=== PATIENT | female | born 1950 | race Caucasian/White ===

== ENCOUNTER → 2019-04-11 10:50 | Outpatient (BNVA) | payer MEDICARE, OTHER, SELFPAY | PROVIDERS: Family Provider Nurse Practitioner Family; PCP Nurse Practitioner Family; Visit Provider Internal Medicine Rheumatology | DX: M32.9 Systemic lupus erythematosus, unspecified (principal); Z79.899 Other long term (current) drug therapy; R76.8 Other specified abnormal immunological findings in serum; M19.071 Primary osteoarthritis, right ankle and foot; M19.072 Primary osteoarthritis, left ankle and foot; Z11.59 Encounter for screening for other viral diseases | CPT/HCPCS: 36415; 80076; 81001; 82565; 82570; 84156; 85025; 85651; 86140; 86160; 99214 ==

== ENCOUNTER → 2019-04-11 12:00 | Outpatient (BNVA) | payer MEDICARE, OTHER, SELFPAY | PROVIDERS: Family Provider Nurse Practitioner Family; PCP Nurse Practitioner Family; Visit Provider Internal Medicine Rheumatology | DX: M32.9 Systemic lupus erythematosus, unspecified (principal); Z79.899 Other long term (current) drug therapy | CPT/HCPCS: 81001; 82570; 84156; 85025; 86160 ==

== ENCOUNTER → 2019-10-01 10:08 | Outpatient (BNVA) | payer MEDICARE, OTHER, SELFPAY | PROVIDERS: Family Provider Nurse Practitioner Family; PCP Nurse Practitioner Family; Visit Provider Internal Medicine Rheumatology | DX: M32.9 Systemic lupus erythematosus, unspecified (principal); M05.9 Rheumatoid arthritis with rheumatoid factor, unspecified; R76.8 Other specified abnormal immunological findings in serum; M19.071 Primary osteoarthritis, right ankle and foot; M19.072 Primary osteoarthritis, left ankle and foot; M10.9 Gout, unspecified | CPT/HCPCS: 88305; 88312; 99214 ==

== ENCOUNTER → 2019-11-11 13:12 | Outpatient (BNVA) | payer MEDICARE, OTHER, SELFPAY | PROVIDERS: Family Provider Nurse Practitioner Family; PCP Nurse Practitioner Family; Referring Provider Dermatology; Visit Provider Dermatology | DX: L29.9 Pruritus, unspecified (principal); L85.3 Xerosis cutis; D69.2 Other nonthrombocytopenic purpura; M32.9 Systemic lupus erythematosus, unspecified; M05.79 Rheumatoid arthritis with rheumatoid factor of multiple sites without organ or systems involvement | CPT/HCPCS: 99203; 99204 ==

== ENCOUNTER 2019-12-10 12:01 | Outpatient (CLI) | payer MEDICARE, OTHER, SELFPAY ==
--- NOTE | 2019-12-10 12:08 | MM_ITS ---
WS: [id number] BILATERAL DIGITAL SCREENING MAMMOGRAM WITH CAD CLINICAL INFORMATION: SCREENING HISTORY: Screening mammogram. No current complaints. COMPARISON: TECHNIQUE: Bilateral CC and MLO. FINDINGS: The breast are composed of extremely dense tissue, which can limit the detection of small underlying mass lesions. Increasing 10 mm asymmetric density upper outer left breast. Recommend spot compression views and ultrasound. Stable dystrophic calcification right breast MM/[place] [id number] IMPRESSION: BI-RADS: 0-Incomplete: Need additional imaging evaluation FOLLOW UP: Need Additional Imaging RECOMMEND LEFT BREAST SPOT COMPRESSION VIEWS AND ULTRASOUND
== END 2019-12-10 12:02 | disposition home or self-care (01) ==
PROVIDERS: PCP Nurse Practitioner Family; Visit Provider Nurse Practitioner Family
DX: Z12.31 Encounter for screening mammogram for malignant neoplasm of breast (principal); R92.1 Mammographic calcification found on diagnostic imaging of breast; N64.89 Other specified disorders of breast
CPT/HCPCS: 77067

== ENCOUNTER 2019-12-16 11:53 | Outpatient (CLI) | payer MEDICARE, OTHER, SELFPAY ==
--- NOTE | 2019-12-16 12:01 | US_ITS ---
WS: [id number] LEFT DIGITAL MAMMOGRAPHY WITH CAD CLINICAL INFORMATION: LT BREAST DENSITY COMPARISON: December 10, 2019 TECHNIQUE: 3 views of the left breast were obtained. FINDINGS: The left breast is composed of heterogeneous fibroglandular density tissue, which can limit the detec tion of small underlying mass lesions. Stable 10 mm asymmetric density upper outer left breast. Ultrasound is pending. ULTRASOUND BREAST LEFT TECHNIQUE: Ultrasound left breast focused area of concern. CLINICAL INFORMATION: LT BREAST DENSITY COMPARISON: None. FINDINGS: Ultrasound left breast at the 9:00 position. Dense underlying parenchymal tissue. No evidence of cyst ic or solid lesions. No pathologic lesions to target for biopsy. Findings are benign. US/US breast LT limited* [id number] IMPRESSION: BI-RADS: 2-Benign FOLLOW UP: 1 Year Follow-up Recommend return to annual screening mammography.
== END 2019-12-16 11:54 | disposition home or self-care (01) ==
LOC: RADSHAW 11:59
PROVIDERS: PCP Nurse Practitioner Family; Visit Provider Nurse Practitioner Family
DX: N64.89 Other specified disorders of breast (principal)
CPT/HCPCS: 76642; 77065

== ENCOUNTER → 2020-01-06 11:08 | Outpatient (BNVA) | payer MEDICARE, OTHER, SELFPAY | PROVIDERS: PCP Nurse Practitioner Family; Visit Provider Internal Medicine Rheumatology | DX: M32.9 Systemic lupus erythematosus, unspecified (principal); M05.79 Rheumatoid arthritis with rheumatoid factor of multiple sites without organ or systems involvement; M10.9 Gout, unspecified; Z79.899 Other long term (current) drug therapy; Z79.52 Long term (current) use of systemic steroids; R76.8 Other specified abnormal immunological findings in serum; M17.0 Bilateral primary osteoarthritis of knee; M19.071 Primary osteoarthritis, right ankle and foot; M19.072 Primary osteoarthritis, left ankle and foot | CPT/HCPCS: 36415; 80076; 82565; 84550; 85025; 85651; 99214 ==

== ENCOUNTER 2020-01-06 12:22 | Outpatient (CLI) | payer MEDICARE, OTHER, SELFPAY ==
[2020-01-06 12:55] LABS: Basophils # 0.1 10^3/uL (0.0-0.1); Basophils % 1.7 %; Eosinophils # 0.2 10^3/uL (0.0-0.8); Eosinophils % 3.2 %; Hematocrit 40.7 % (37.0-47.0); Lymphocytes # 1.2 10^3/uL (0.8-4.8); Lymphocytes % 22.5 %; Mean Corpuscular HGB Conc 31.9 g/dL (30.0-36.0); Mean Corpuscular Hemoglobin 27.5 pg (28.0-34.0); Mean Platelet Volume 10.7 fL (7.4-10.4); Monocytes # 0.6 10^3/uL (0.2-0.9); Monocytes % 11.3 %; Neutrophils # 3.24 10^3/uL (1.8-7.7); Neutrophils % 61.3 %; Nucleated Red Blood Cells % 0 %; Platelet Count 214 10^3/cmm (130-400); Red Blood Count 4.73 10^6/uL (4.1-5.3); Red Cell Distribution Width 13.5 % (12.1-15.1); White Blood Count 5.3 10^3/uL (4.0-10.0)
[2020-01-06 13:13] LABS: Alanine Aminotransferase 17 U/L (0-33); Albumin Level 4.4 g/dL (3.5-5.2); Alkaline Phosphatase 77 IU/L (35-105); Aspartate Amino Transferase 24 U/L (0-32); Glomerular Filtration Rate 82.7 mL/min (90-130); Total Bilirubin 0.2 mg/dL (0.15-1.2); Total Protein 7.4 g/dL (6.6-8.7); Uric Acid 5.8 mg/dL (2.4-5.7)
[2020-01-06 13:38] LABS: Erythrocyte Sedimentation Rate 21 mm/hr (0-15)
== END 2020-01-06 12:23 | disposition home or self-care (01) ==
LOC: LAB 12:30
PROVIDERS: PCP Nurse Practitioner Family; Visit Provider Internal Medicine Rheumatology
DX: Z79.899 Other long term (current) drug therapy (principal)
CPT/HCPCS: 36415; 80076; 82565; 84550; 85025; 85651

== ENCOUNTER → 2020-03-08 13:32 | Outpatient (BNVA) | payer MEDICARE, OTHER, SELFPAY | PROVIDERS: PCP Nurse Practitioner Family; Visit Provider Nurse Practitioner | DX: M79.671 Pain in right foot (principal) | CPT/HCPCS: 84550; 84560 ==

== ENCOUNTER 2020-05-01 13:29 | Outpatient (CLI) | payer MEDICARE, OTHER, SELFPAY ==
[2020-05-01 13:57] LABS: Basophils # 0.1 10^3/uL (0.0-0.1); Basophils % 2.1 %; Eosinophils # 0.1 10^3/uL (0.0-0.8); Eosinophils % 1.7 %; Hematocrit 35.8 % (37.0-47.0); Hemoglobin 11.1 g/dL (11.5-15.3); Lymphocytes # 1.4 10^3/uL (0.8-4.8); Lymphocytes % 26.9 %; Mean Corpuscular Hemoglobin 26.2 pg (28.0-34.0); Mean Corpuscular Volume 84.6 fL (81-99); Mean Platelet Volume 10.4 fL (7.4-10.4); Monocytes # 0.6 10^3/uL (0.2-0.9); Monocytes % 11.5 %; Neutrophils # 3.05 10^3/uL (1.8-7.7); Neutrophils % 57.2 %; Nucleated Red Blood Cells % 0 %; Platelet Count 269 10^3/cmm (130-400); Red Blood Count 4.23 10^6/uL (4.1-5.3); Red Cell Distribution Width 16.2 % (12.1-15.1); White Blood Count 5.3 10^3/uL (4.0-10.0)
[2020-05-01 14:19] LABS: Alanine Aminotransferase 20 U/L (0-33); Albumin Level 4.2 g/dL (3.5-5.2); Alkaline Phosphatase 102 IU/L (35-105); Aspartate Amino Transferase 24 U/L (0-32); C Reactive Protein 0.8 mg/L (0.0-4.9); Glomerular Filtration Rate 82.7 mL/min (90-130); Total Bilirubin 0.3 mg/dL (0.15-1.2); Total Protein 7.2 g/dL (6.6-8.7)
== END 2020-05-01 13:30 | disposition home or self-care (01) ==
PROVIDERS: PCP Nurse Practitioner Family; Visit Provider Internal Medicine Rheumatology
DX: M05.79 Rheumatoid arthritis with rheumatoid factor of multiple sites without organ or systems involvement (principal); Z79.899 Other long term (current) drug therapy
CPT/HCPCS: 36415; 80076; 82565; 85025; 86140

== ENCOUNTER → 2020-05-12 15:12 | Outpatient (BNVA) | payer MEDICARE, OTHER, SELFPAY | PROVIDERS: PCP Nurse Practitioner Family; Visit Provider Internal Medicine Rheumatology | DX: M32.9 Systemic lupus erythematosus, unspecified (principal); M05.79 Rheumatoid arthritis with rheumatoid factor of multiple sites without organ or systems involvement; R76.8 Other specified abnormal immunological findings in serum; Z79.899 Other long term (current) drug therapy; Z86.16 Personal history of COVID-19; Z87.891 Personal history of nicotine dependence | CPT/HCPCS: 99214 ==

== ENCOUNTER 2020-05-21 15:35 | Outpatient (CLI) | payer MEDICARE, OTHER, SELFPAY ==
--- NOTE | 2020-05-21 | XR_ITS ---
WS: [id number] Right ankle, 3 views, 05/21/2020 Clinical Data: BILAT FOOT AND ANKLE PAIN Comparison: None. Findings: No fractures or dislocations are seen. The ankle mortise is normal. The talus and calcaneus are unrem arkable. No soft tissue swelling over the medial or lateral malleolus is seen. XR/XR ankle RT min 3V* [id number] Impression: Negative right ankle.
--- NOTE | 2020-05-21 | XR_ITS ---
WS: [id number] Right foot, 3 views, 05/21/2020 Clinical Data: RT. FOOT PAIN Comparison: None. Findings: No fractures or dislocations are seen. No bone destruction or erosion is noted. There is a small buni on at the head of the right first metatarsal. XR/XR foot RT min 3V* [id number] Impression: Small bunion at the head of the right first metatarsal.
--- NOTE | 2020-05-21 | XR_ITS ---
WS: [id number] Left foot, 3 views, 05/21/2020 Clinical Data: LT FOOT PAIN Comparison: None. Findings: No fractures or dislocations are seen. No bone destruction or erosion is noted. Minimal osteoarthriti c narrowing of the first MP joint of the left foot is seen. 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
--- NOTE | 2020-05-21 | XR_ITS ---
WS: [id number] Left ankle, 3 views, 05/21/2020 Clinical Data: LT. ANKLE PAIN Comparison: None. Findings: No fractures or dislocations are seen. The ankle mortise is normal. The talus and calcaneus are unrem arkable. No soft tissue swelling over the medial or lateral malleolus is seen. XR/XR ankle LT min 3V* [id number] Impression: Negative left ankle.
== END 2020-05-21 15:36 | disposition home or self-care (01) ==
LOC: RAD 15:46
PROVIDERS: PCP Nurse Practitioner Family; Visit Provider Nurse Practitioner Family
DX: M25.572 Pain in left ankle and joints of left foot (principal); M25.571 Pain in right ankle and joints of right foot; M19.072 Primary osteoarthritis, left ankle and foot; M21.611 Bunion of right foot
CPT/HCPCS: 73610; 73630

== ENCOUNTER → 2020-06-01 13:37 | Outpatient (BNVA) | payer MEDICARE, OTHER, SELFPAY | PROVIDERS: PCP Nurse Practitioner Family; Visit Provider Nurse Practitioner | DX: R30.0 Dysuria (principal); N39.0 Urinary tract infection, site not specified | CPT/HCPCS: 81000; 87086 ==

== ENCOUNTER → 2020-09-01 13:36 | Outpatient (BNVA) | payer MEDICARE, OTHER, SELFPAY | PROVIDERS: PCP Nurse Practitioner Family; Visit Provider Internal Medicine Rheumatology | DX: M05.79 Rheumatoid arthritis with rheumatoid factor of multiple sites without organ or systems involvement (principal); M32.9 Systemic lupus erythematosus, unspecified; R76.8 Other specified abnormal immunological findings in serum; Z79.899 Other long term (current) drug therapy | CPT/HCPCS: 36415; 80076; 82565; 84550; 85025; 86140 ==

== ENCOUNTER → 2020-09-09 11:03 | Outpatient (BNVA) | payer MEDICARE, OTHER, SELFPAY | PROVIDERS: PCP Nurse Practitioner Family; Visit Provider Internal Medicine Rheumatology | DX: L93.1 Subacute cutaneous lupus erythematosus (principal); M05.9 Rheumatoid arthritis with rheumatoid factor, unspecified; R76.8 Other specified abnormal immunological findings in serum; Z79.899 Other long term (current) drug therapy; M17.0 Bilateral primary osteoarthritis of knee; M19.09 Primary osteoarthritis, other specified site; Z71.89 Other specified counseling; Z87.891 Personal history of nicotine dependence | CPT/HCPCS: 99214 ==

== ENCOUNTER → 2020-12-30 13:00 | Outpatient (BNVA) | payer MEDICARE, OTHER, SELFPAY | PROVIDERS: PCP Nurse Practitioner Family; Visit Provider Internal Medicine Rheumatology | DX: L93.1 Subacute cutaneous lupus erythematosus (principal); M05.79 Rheumatoid arthritis with rheumatoid factor of multiple sites without organ or systems involvement; Z79.899 Other long term (current) drug therapy; M17.0 Bilateral primary osteoarthritis of knee; M19.071 Primary osteoarthritis, right ankle and foot; M19.072 Primary osteoarthritis, left ankle and foot; R76.8 Other specified abnormal immunological findings in serum; Z71.89 Other specified counseling; Z87.891 Personal history of nicotine dependence | CPT/HCPCS: 99214 ==

== ENCOUNTER 2021-03-18 11:34 | Outpatient (CLI) | payer MEDICARE, OTHER, SELFPAY ==
--- NOTE | 2021-03-18 11:43 | MM_ITS ---
WS: [id number] BILATERAL DIGITAL SCREENING MAMMOGRAPHY WITH CAD CLINICAL INFORMATION: SCREENING HISTORY: Screening mammogram. No current complaints. COMPARISON: December 16, 2019 TECHNIQUE: Bilateral CC and MLO views. FINDINGS: The breasts are composed of heterogeneous fibroglandular density tissue, which can limit the detectio n of small underlying mass lesions. Vascular calcification. Stable dystrophic calcification upper out er right breast. No suspicious mass, asymmetry, calcifications, or architectural distortion. No evide nce of malignancy. MM/[place] [id number] IMPRESSION: BI-RADS: 2-Benign FOLLOW UP: 1 Year Follow-up Recommend return to annual screening mammography.
== END 2021-03-18 11:35 | disposition home or self-care (01) ==
PROVIDERS: PCP Nurse Practitioner Family; Visit Provider Nurse Practitioner Family
DX: Z12.31 Encounter for screening mammogram for malignant neoplasm of breast (principal)
CPT/HCPCS: 77067

== ENCOUNTER 2021-04-21 16:38 | Outpatient (CLI) | payer MEDICARE, OTHER, SELFPAY ==
[2021-04-21 17:22] LABS: Basophils # 0.1 10^3/uL (0.0-0.1); Basophils % 1.4 %; Eosinophils # 0.1 10^3/uL (0.0-0.8); Eosinophils % 2.5 %; Hematocrit 38.7 % (37.0-47.0); Hemoglobin 12.3 g/dL (11.5-15.3); Lymphocytes # 1.3 10^3/uL (0.8-4.8); Mean Corpuscular HGB Conc 31.8 g/dL (30.0-36.0); Mean Corpuscular Hemoglobin 27.3 pg (28.0-34.0); Mean Corpuscular Volume 85.8 fl (81-99); Mean Platelet Volume 10.6 fL (7.4-10.4); Monocytes # 0.7 10^3/uL (0.2-0.9); Monocytes % 16.1 %; Neutrophils # 2.16 10^3/uL (1.8-7.7); Neutrophils % 49.5 %; Nucleated Red Blood Cells % 0 %; Platelet Count 247 10^3/cmm (130-400); Red Blood Count 4.51 10^6/uL (4.1-5.3); Red Cell Distribution Width 14.9 % (12.1-15.1); White Blood Count 4.4 10^3/uL (4.0-10.0)
[2021-04-21 17:41] LABS: Bilirubin Urine Neg (Negative); Blood Urine Neg (Negative); Glucose Urine UA Norm (Normal); Ketones Urine Negative (Negative); Leukocyte Esterase Urine Trace (Negative); Nitrate Urine Negative (Negative); Protein Urine Neg (Negative); Urine Appearance SL Hazy (CLEAR); Urine Color Yellow (Yellow); Urobilinogen Urine Norm (Negative); pH Urine 5 (5-7)
[2021-04-21 17:50] LABS: Add Urine Culture? No; Bacteria Urine 1+ /hpf; Squamous Epithelial Cell Urine 40-55 /hpf (0-5); WBC Urine RARE /hpf (0-5)
[2021-04-21 18:00] LABS: Alanine Aminotransferase 17 U/L (0-33); Albumin Level 4.3 g/dL (3.5-5.2); Alkaline Phosphatase 68 IU/L (35-105); Aspartate Amino Transferase 21 U/L (0-32); C Reactive Protein 3.5 mg/L (0.0-4.9); Globulin 3.1 g/dL (1.3-4.6); Total Bilirubin 0.3 mg/dL (0.15-1.2); Total Protein 7.4 g/dL (6.6-8.7)
[2021-04-21 19:23] LABS: Urine Creatinine 148 mg/dL (28-217); Urine Protein Random 10 mg/dL
== END 2021-04-21 16:39 | disposition home or self-care (01) ==
LOC: LAB 16:42
PROVIDERS: PCP Nurse Practitioner Family; Visit Provider Internal Medicine Rheumatology
DX: L93.1 Subacute cutaneous lupus erythematosus (principal); Z79.899 Other long term (current) drug therapy
CPT/HCPCS: 36415; 80076; 81001; 82565; 82570; 84156; 85025; 86140

== ENCOUNTER → 2021-04-27 14:58 | Outpatient (BNVA) | payer MEDICARE, OTHER, SELFPAY | PROVIDERS: PCP Nurse Practitioner Family; Visit Provider Internal Medicine Rheumatology | DX: M32.9 Systemic lupus erythematosus, unspecified (principal); R76.8 Other specified abnormal immunological findings in serum; M17.0 Bilateral primary osteoarthritis of knee; M19.071 Primary osteoarthritis, right ankle and foot; M19.072 Primary osteoarthritis, left ankle and foot; R21 Rash and other nonspecific skin eruption; Z79.899 Other long term (current) drug therapy; Z71.89 Other specified counseling | CPT/HCPCS: 99214 ==

== ENCOUNTER → 2021-09-02 10:52 | Outpatient (BNVA) | payer MEDICARE, OTHER, SELFPAY | PROVIDERS: PCP Nurse Practitioner Family; Visit Provider Internal Medicine Rheumatology | DX: M32.9 Systemic lupus erythematosus, unspecified (principal); M05.79 Rheumatoid arthritis with rheumatoid factor of multiple sites without organ or systems involvement; Z79.899 Other long term (current) drug therapy; L30.9 Dermatitis, unspecified; M17.0 Bilateral primary osteoarthritis of knee; M19.071 Primary osteoarthritis, right ankle and foot; M19.072 Primary osteoarthritis, left ankle and foot; Z71.89 Other specified counseling | CPT/HCPCS: 36415; 80076; 81001; 82565; 82570; 84156; 85025; 86140; 99214 ==

== ENCOUNTER → 2021-09-03 17:05 | Outpatient (BNVA) | payer MEDICARE, OTHER, SELFPAY | PROVIDERS: PCP Nurse Practitioner Family; Visit Provider Family Medicine Adult Medicine | DX: R39.9 Unspecified symptoms and signs involving the genitourinary system (principal); N39.0 Urinary tract infection, site not specified | CPT/HCPCS: 81000 ==

== ENCOUNTER 2022-02-23 16:32 | Outpatient (CLI) | payer MEDICARE, OTHER, SELFPAY ==
[2022-02-23 18:04] LABS: Basophils # 0.1 10^3/uL (0.0-0.1); Basophils % 1.6 %; Eosinophils % 0.7 %; Hematocrit 40.8 % (37.0-47.0); Hemoglobin 12.7 g/dL (11.5-15.3); Lymphocytes # 2.1 10^3/uL (0.8-4.8); Lymphocytes % 35.8 %; Mean Corpuscular HGB Conc 31.1 g/dL (30.0-36.0); Mean Corpuscular Hemoglobin 26.4 pg (28.0-34.0); Mean Corpuscular Volume 84.8 fl (81-99); Mean Platelet Volume 11.6 fL (7.4-10.4); Monocytes # 0.9 10^3/uL (0.2-0.9); Monocytes % 15.3 %; Neutrophils # 2.67 10^3/uL (1.8-7.7); Neutrophils % 46.3 %; Nucleated Red Blood Cells % 0 %; Platelet Count 267 10^3/cmm (130-400); Red Blood Count 4.81 10^6/uL (4.1-5.3); Red Cell Distribution Width 14.5 % (12.1-15.1); White Blood Count 5.8 10^3/uL (4.0-10.0)
[2022-02-23 18:30] LABS: Alanine Aminotransferase 9 U/L (0-33); Albumin Level 4.3 g/dL (3.5-5.2); Alkaline Phosphatase 59 U/L (35-105); Aspartate Amino Transferase 17 U/L (0-32); Globulin 3.1 g/dL (1.3-4.6); Total Bilirubin 0.3 mg/dL (0.15-1.2); Total Protein 7.4 g/dL (6.6-8.7)
== END 2022-02-23 16:33 | disposition home or self-care (01) ==
LOC: LAB 16:39
PROVIDERS: PCP Nurse Practitioner Family; Visit Provider Internal Medicine Rheumatology
DX: Z79.899 Other long term (current) drug therapy (principal); L93.1 Subacute cutaneous lupus erythematosus
CPT/HCPCS: 80076; 82565; 85025; 86140

== ENCOUNTER → 2022-02-24 09:36 | Outpatient (BNVA) | payer MEDICARE, OTHER, SELFPAY | PROVIDERS: PCP Nurse Practitioner Family; Visit Provider Internal Medicine Rheumatology | DX: M05.79 Rheumatoid arthritis with rheumatoid factor of multiple sites without organ or systems involvement (principal); L30.9 Dermatitis, unspecified; Z79.899 Other long term (current) drug therapy; Z71.89 Other specified counseling; R76.8 Other specified abnormal immunological findings in serum; M17.0 Bilateral primary osteoarthritis of knee; M19.071 Primary osteoarthritis, right ankle and foot; M19.072 Primary osteoarthritis, left ankle and foot | CPT/HCPCS: 99214 ==

== ENCOUNTER 2022-03-28 11:39 | Outpatient (CLI) | payer MEDICARE, OTHER, SELFPAY ==
--- NOTE | 2022-03-28 11:44 | MM_ITS ---
WS: [id number] BILATERAL SCREENING DIGITAL TOMOSYNTHESIS MAMMOGRAM WITH CAD HISTORY: SCREENING COMPARISON: 03/18/2021, 12/16/2019 and 12/10/2019 Bilateral CC and MLO views with tomosynthesis and synthetic mammography submitted. Computer aided det ection analyzed. Breast composition: The breasts are heterogeneously dense, which may obscure small masses. Asymmetry in the upper outer quadrant of the LEFT breast. May be superimposed fibroglandular tissues. Benign calcifications RIGHT breast. MM/[place] [id number] IMPRESSION: BI-RADS: 0-Incomplete: Need additional imaging evaluation FOLLOW UP: Need Additional Imaging LEFT breast: Spot compression views (CC and MLO). True ML. Ultrasound to follow if abnormality persists.
== END 2022-03-28 11:40 | disposition home or self-care (01) ==
PROVIDERS: PCP Nurse Practitioner Family; Visit Provider Nurse Practitioner Family
DX: Z12.31 Encounter for screening mammogram for malignant neoplasm of breast (principal)
CPT/HCPCS: 77063; 77067

== ENCOUNTER 2022-04-21 09:01 | Outpatient (CLI) | payer MEDICARE, OTHER, SELFPAY ==
--- NOTE | 2022-04-21 09:09 | MM_ITS ---
WS: [id number] ADDITIONAL VIEWS LEFT MAMMOGRAM with tomosynthesis. LEFT BREAST ULTRASOUND HISTORY: ABNORMAL MAMMO COMPARISON: 03/28/2022, 03/18/2021 LEFT MAMMOGRAM: Spot compression views and true ML with tomosynthesis and sympathetic mammography. The asymmetry noted best on the LEFT MLO projection in the upper outer quadrant significantly changes configuration with spot compression views. I suspect this is probably normal fibroglandular tissue. Ultrasound will be performed also. LEFT BREAST ULTRASOUND 2-D and color Doppler imaging submitted. Ultrasound directed to the upper outer quadrant of the LEFT breast from 12-3 o'clock. There is no mas s or shadowing. No cystic or solid mass. MM/[place] [id number] IMPRESSION: BI-RADS: 2-Benign FOLLOW UP: 1 Year Follow-up No persistent abnormality upper-outer quadrant LEFT breast.
== END 2022-04-21 09:02 | disposition home or self-care (01) ==
LOC: RAD 09:06
PROVIDERS: PCP Nurse Practitioner Family; Visit Provider Nurse Practitioner Family
DX: R92.8 Other abnormal and inconclusive findings on diagnostic imaging of breast (principal)
CPT/HCPCS: 76642; 77061; G0279

== ENCOUNTER 2022-07-29 15:30 | Outpatient (CLI) | payer MEDICARE, OTHER, SELFPAY ==
[2022-07-29 16:12] LABS: Basophils # 0.1 10^3/uL (0.0-0.1); Basophils % 2.8 %; Eosinophils # 0.2 10^3/uL (0.0-0.8); Eosinophils % 4.8 %; Hematocrit 37.3 % (37.0-47.0); Hemoglobin 11.5 g/dL (11.5-15.3); Lymphocytes # 1.3 10^3/uL (0.8-4.8); Lymphocytes % 29.3 %; Mean Corpuscular HGB Conc 30.8 g/dL (30.0-36.0); Mean Corpuscular Hemoglobin 25.9 pg (28.0-34.0); Mean Platelet Volume 10.2 fL (7.4-10.4); Monocytes # 0.7 10^3/uL (0.2-0.9); Monocytes % 15.9 %; Neutrophils # 2.04 10^3/uL (1.8-7.7); Neutrophils % 47.2 %; Nucleated Red Blood Cells % 0 %; Platelet Count 280 10^3/cmm (130-400); Red Blood Count 4.44 10^6/uL (4.1-5.3); Red Cell Distribution Width 14.4 % (12.1-15.1); White Blood Count 4.3 10^3/uL (4.0-10.0)
[2022-07-29 16:26] LABS: Alanine Aminotransferase 16 U/L (0-33); Albumin Level 4.1 g/dL (3.5-5.2); Alkaline Phosphatase 61 U/L (35-105); Aspartate Amino Transferase 24 U/L (0-32); C Reactive Protein 6.9 mg/L (0.0-4.9); Globulin 2.8 g/dL (1.3-4.6); Total Bilirubin 0.3 mg/dL (0.15-1.2); Total Protein 6.9 g/dL (6.6-8.7)
== END 2022-07-29 15:31 | disposition home or self-care (01) ==
LOC: LAB 15:37
PROVIDERS: PCP Nurse Practitioner Family; Visit Provider Internal Medicine Rheumatology
DX: M32.9 Systemic lupus erythematosus, unspecified (principal); Z79.899 Other long term (current) drug therapy
CPT/HCPCS: 36415; 80076; 82565; 85025; 86140

== ENCOUNTER → 2022-08-01 13:20 | Outpatient (BNVA) | payer MEDICARE, OTHER, SELFPAY | PROVIDERS: PCP Nurse Practitioner Family; Visit Provider Internal Medicine Rheumatology | DX: M05.79 Rheumatoid arthritis with rheumatoid factor of multiple sites without organ or systems involvement (principal); Z79.899 Other long term (current) drug therapy; L30.9 Dermatitis, unspecified; Z71.89 Other specified counseling; R76.8 Other specified abnormal immunological findings in serum | CPT/HCPCS: 99214 ==

== ENCOUNTER → 2022-09-22 09:04 | Outpatient (BNVA) | payer MEDICARE, OTHER, SELFPAY | PROVIDERS: PCP Nurse Practitioner Family; Referring Provider Nurse Practitioner Family; Visit Provider Specialist | DX: G50.0 Trigeminal neuralgia; M32.9 Systemic lupus erythematosus, unspecified | CPT/HCPCS: 99204 ==

== ENCOUNTER 2022-10-20 11:03 | Outpatient (CLI) | payer MEDICARE, OTHER, SELFPAY ==
--- NOTE | 2022-10-20 11:00 | MR_ITS ---
WS: [id number] MRA HEAD TECHNIQUE: Axial 3-D TOF images obtained with axial images and axial, sagittal, and coronal 2-D refor matted images. CLINICAL INFORMATION: G50.0 - Trigeminal neuralgia COMPARISON: None. FINDINGS: Distal vertebral arteries are patent. Basilar artery is patent. Normal vascularity to the MANAGER MARKET territo ry bilaterally. Persistent RIGHT MANAGER MARKET. Both ICAs are patent at the skull base. Normal vascularity to the SARA and MCA territories bilaterally . No evidence of proximal flow-limiting stenosis or aneurysm. Superior cerebellar artery slightly contacting the RIGHT trigeminal nerve better seen on the MRI head images. IMPRESSION: 1. No evidence of proximal flow-limiting stenosis or aneurysm. 2. Persistent RIGHT MANAGER MARKET. 3. Suspected Superior cerebellar artery slightly impinging the RIGHT trigeminal nerve better seen on the MRI head images
--- NOTE | 2022-10-20 11:15 | MR_ITS ---
WS: [id number] MRI HEAD WITHOUT CONTRAST TECHNIQUE: Sagittal T1, T2 axial, T2 axial FLAIR, axial and coronal T1 images, axial susceptibility w eighted imaging, axial diffusion weighted images, and coronal T2 images were obtained. CLINICAL INFORMATION: G50.0 - Trigeminal neuralgia COMPARISON: None. FINDINGS: No evidence restricted diffusion to suggest acute ischemia. Ventricular system and basal cisterns are patent. Mild small vessel changes. Mild parenchymal volume loss. Tiny chronic lacunar infarct RIGHT posterior lateral cerebellum. Normal vascular flow voids at the skull base. No extra-axial fluid shravan ections. No evidence of mass or mass effect. Paranasal sinuses are well aerated. Mild mucosal thickening mastoid tips bilaterally. Normal posterior nasopharynx. Normal parapharyngeal fat. No hemosiderin on susceptibility-weighted images. Normal optic chiasm and pituitary infundibulu m. RIGHT superior cerebellar artery appears to slightly impinge the preganglionic segment RIGHT trigemin al nerve best seen on the coronal imaging. LEFT trigeminal nerve root appears normal. IMPRESSION: 1. No evidence of restricted diffusion to suggest acute ischemia. 2. Mild small vessel changes. Mild parenchymal volume loss. 3. Tiny chronic lacunar infarct RIGHT cerebellum. 4. Superior cerebellar artery appears to cross the preganglionic segment RIGHT trigeminal nerve seen on the coronal imaging with slight compression. This could be further evaluated with gadolinium with IAC protocol for better anatomic detail if indicated. Recommend correlation with RIGHT trigeminal ne uralgia. 5. LEFT trigeminal nerve root entry zone has a normal appearance. 6. No other acute findings.
== END 2022-10-20 11:04 | disposition home or self-care (01) ==
PROVIDERS: PCP Nurse Practitioner Family; Visit Provider Specialist
DX: G50.0 Trigeminal neuralgia (principal); Z86.73 Personal history of transient ischemic attack (TIA), and cerebral infarction without residual deficits; R93.0 Abnormal findings on diagnostic imaging of skull and head, not elsewhere classified
CPT/HCPCS: 70544; 70551

== ENCOUNTER → 2022-10-28 09:32 | Outpatient (BNVA) | payer MEDICARE, OTHER, SELFPAY | PROVIDERS: PCP Nurse Practitioner Family; Visit Provider Specialist | DX: R29.90 Unspecified symptoms and signs involving the nervous system (principal); G50.0 Trigeminal neuralgia; H92.01 Otalgia, right ear | CPT/HCPCS: 99214 ==

== ENCOUNTER → 2022-11-14 11:10 | Outpatient (BNVA) | payer MEDICARE, OTHER, SELFPAY | PROVIDERS: PCP Nurse Practitioner Family; Referring Provider Specialist; Visit Provider Otolaryngology | DX: H93.A1 Pulsatile tinnitus, right ear (principal) | CPT/HCPCS: 99203 ==

== ENCOUNTER 2022-11-14 12:33 | Outpatient (CLI) | payer MEDICARE, OTHER, SELFPAY ==
[2022-11-14 13:14] LABS: Basophils # 0.1 10^3/uL (0.0-0.1); Basophils % 2.4 %; Eosinophils # 0.1 10^3/uL (0.0-0.8); Eosinophils % 2.4 %; Hematocrit 33.7 % (36-47); Lymphocytes # 1.3 10^3/uL (0.8-4.8); Lymphocytes % 29.8 %; Mean Corpuscular HGB Conc 31.5 g/dL (30-55); Mean Corpuscular Hemoglobin 26.6 pg (27-33); Mean Corpuscular Volume 84.5 fl (85-98); Mean Platelet Volume 10.4 fL (7.4-10.4); Monocytes # 0.7 10^3/uL (0.2-0.9); Monocytes % 17.1 %; Neutrophils # 2.01 10^3/uL (1.8-7.7); Neutrophils % 47.8 %; Nucleated Red Blood Cells % 0 %; Platelet Count 382 10^3/cmm (157-399); Red Blood Count 3.99 10^6/uL (3.85-5.65); Red Cell Distribution Width 14.2 % (12.1-15.1)
[2022-11-14 13:42] LABS: Alanine Aminotransferase 17 U/L (0-33); Albumin Level 3.9 g/dL (3.5-5.2); Alkaline Phosphatase 87 U/L (35-105); Aspartate Amino Transferase 15 U/L (0-32); Free T4 Free Thyroxine 1.26 ng/dL (0.82-1.77); Globulin 2.6 g/dL (1.3-4.6); Thyroid Stimulating Hormone 0.63 uIU/mL (0.27-4.20); Total Bilirubin 0.2 mg/dL (0.15-1.2); Total Protein 6.5 g/dL (6.6-8.7)
== END 2022-11-14 12:34 | disposition home or self-care (01) ==
PROVIDERS: PCP Nurse Practitioner Family; Visit Provider Internal Medicine Rheumatology
DX: Z79.899 Other long term (current) drug therapy (principal); M32.9 Systemic lupus erythematosus, unspecified
CPT/HCPCS: 36415; 80076; 82565; 84439; 84443; 85025; 86140

== ENCOUNTER → 2022-11-16 11:17 | Outpatient (BNVA) | payer MEDICARE, OTHER, SELFPAY | PROVIDERS: PCP Nurse Practitioner Family; Visit Provider Internal Medicine Rheumatology | DX: Z79.899 Other long term (current) drug therapy (principal); M05.79 Rheumatoid arthritis with rheumatoid factor of multiple sites without organ or systems involvement; L30.9 Dermatitis, unspecified; Z71.89 Other specified counseling; R76.8 Other specified abnormal immunological findings in serum | CPT/HCPCS: 99214 ==

== ENCOUNTER → 2022-11-28 14:08 | Outpatient (BNVA) | payer MEDICARE, OTHER, SELFPAY | PROVIDERS: PCP Nurse Practitioner Family; Visit Provider Dermatology | DX: L65.0 Telogen effluvium (principal); L57.0 Actinic keratosis; L72.0 Epidermal cyst; M32.10 Systemic lupus erythematosus, organ or system involvement unspecified; L57.8 Other skin changes due to chronic exposure to nonionizing radiation | CPT/HCPCS: 99214 ==

== ENCOUNTER → 2022-12-28 14:46 | Outpatient (BNVA) | payer MEDICARE, OTHER, SELFPAY | PROVIDERS: PCP Nurse Practitioner Family; Visit Provider Specialist | DX: G50.0 Trigeminal neuralgia (principal); R23.4 Changes in skin texture | CPT/HCPCS: 99213 ==

== ENCOUNTER → 2023-03-15 10:42 | Outpatient (BNVA) | payer MEDICARE, OTHER, SELFPAY | PROVIDERS: PCP Nurse Practitioner Family; Visit Provider Internal Medicine Rheumatology | DX: Z79.899 Other long term (current) drug therapy (principal); M05.79 Rheumatoid arthritis with rheumatoid factor of multiple sites without organ or systems involvement; L30.9 Dermatitis, unspecified; Z71.89 Other specified counseling; R76.8 Other specified abnormal immunological findings in serum | CPT/HCPCS: 99214 ==

== ENCOUNTER → 2023-05-01 11:28 | Outpatient (BNVA) | payer MEDICARE, OTHER, SELFPAY | PROVIDERS: PCP Nurse Practitioner Family; Visit Provider Podiatrist Foot & Ankle Surgery | DX: M25.571 Pain in right ankle and joints of right foot (principal); M25.572 Pain in left ankle and joints of left foot; G89.29 Other chronic pain; Q82.8 Other specified congenital malformations of skin; G62.9 Polyneuropathy, unspecified | CPT/HCPCS: 73610; 99203 ==

== ENCOUNTER 2023-05-03 14:41 | Outpatient (CLI) | payer MEDICARE, OTHER, SELFPAY ==
--- NOTE | 2023-05-03 14:49 | XR_ITS ---
WS: [email or web address] SCREENING DEXA SCAN [employer] CLINICAL INFORMATION: [facility] STEROID USE COMPARISON: 2016 FINDINGS: The L1-L4 bone mineral density measures 1.303 g/cm2. This corresponds to a T score score of 1.0 and Z score of 3.1. Left femoral neck bone mineral density measures 1.022 g/cm2. This corresponds to a T score of 0.1 and Z score of 2.0. Right femoral neck bone mineral density measures 1.015 g/cm2. This corresponds to a T score 0.1of and Z score of 2.0. Mean femoral neck bone mineral density measures 1.019 g/cm2. This corresponds to a T score of 0.1 and Z score of 2.0. IMPRESSION: Normal bone mineralization. Patient's FRAX calculated 10 year probability for major osteoporotic fracture is 27.9% and osteoporot ic hip fracture is 6.2%. Bone mineral density in the lumbar spine increased 3.4% Bone mineral density in the femoral necks increased 1.1%
== END 2023-05-03 14:42 | disposition home or self-care (01) ==
LOC: RAD 14:41
PROVIDERS: PCP Family Medicine; Visit Provider Family Medicine
DX: Z13.820 Encounter for screening for osteoporosis (principal); Z79.52 Long term (current) use of systemic steroids
CPT/HCPCS: 77080

== ENCOUNTER 2023-05-04 10:11 | Outpatient (CLI) | payer MEDICARE, OTHER, SELFPAY ==
--- NOTE | 2023-05-04 10:16 | CTR_ITS ---
PROCEDURE INFORMATION: Exam: CT Chest Without Contrast; Diagnostic Exam date and time: 05/04/2023 10:38 AM Age: 72 years old Clinical indication: Cough and shortness of breath; Patient HX: Shortness of breath, ex smoker; Additional info: Dyspnea TECHNIQUE: Imaging protocol: Diagnostic computed tomography of the chest without contrast. Radiation optimization: All CT scans at this facility use at least one of these dose optimization techniques: automated exposure control; mA and/or kV adjustment per patient size (includes targeted exams where dose is matched to clinical indication); or iterative reconstruction. COMPARISON: No relevant prior studies available. RADIATION DOSE METRICS: Total DLP (mGy-cm): 202.08 FINDINGS: Lungs: No infiltrate or consolidation. No masses. No significant bulla or bleb formation on the lung windows. Likely hyperinflation. Pleural spaces: Unremarkable. No pneumothorax. No pleural effusion. Heart: Unremarkable. No cardiomegaly. No pericardial effusion. Mild coronary artery calcification. Lymph nodes: Unremarkable. No enlarged lymph nodes. Vasculature: Unremarkable. No aortic aneurysm. Small amount of calcification proximal thoracic aorta. Gallbladder and bile ducts: Images through the upper-most abdomen demonstrate partially visualized surgical clips within the visualized gallbladder fossa and suggestion of postsurgical change GE junction. Bones/joints: Mild spondylotic change thoracic spine. Soft tissues: Unremarkable. CT/CT chest wo con [id number] IMPRESSION: 1. Small amount of calcification proximal thoracic aorta and mild coronary artery calcification. Likely hyperinflation without bulla or bleb formation. 2. No acute findings in the chest.
== END 2023-05-04 10:12 | disposition home or self-care (01) ==
LOC: RAD 10:12
PROVIDERS: PCP Family Medicine; Visit Provider Family Medicine
DX: I25.10 Atherosclerotic heart disease of native coronary artery without angina pectoris (principal); I70.0 Atherosclerosis of aorta
CPT/HCPCS: 71250; 94010; 94726; 94729

== ENCOUNTER → 2023-06-12 13:28 | Outpatient (BNVA) | payer MEDICARE, OTHER, SELFPAY | PROVIDERS: PCP Family Medicine; Visit Provider Podiatrist Foot & Ankle Surgery | DX: M25.571 Pain in right ankle and joints of right foot (principal); M25.572 Pain in left ankle and joints of left foot; Q82.8 Other specified congenital malformations of skin; G62.9 Polyneuropathy, unspecified | CPT/HCPCS: 99213 ==

== ENCOUNTER → 2023-06-28 09:45 | Outpatient (BNVA) | payer MEDICARE, OTHER, SELFPAY | PROVIDERS: PCP Family Medicine; Visit Provider Specialist | DX: G50.0 Trigeminal neuralgia (principal); Z79.899 Other long term (current) drug therapy; R29.90 Unspecified symptoms and signs involving the nervous system | CPT/HCPCS: 36415; 80156; 80157; 85025; 99214 ==

== ENCOUNTER 2023-07-20 11:07 | Outpatient (CLI) | payer MEDICARE, OTHER, SELFPAY ==
--- NOTE | 2023-07-20 11:15 | MM_ITS ---
WS: [id number] BILATERAL SCREENING DIGITAL TOMOSYNTHESIS MAMMOGRAM WITH CAD HISTORY: SCREENING COMPARISON: 09/12/2018, 04/21/2022, 03/28/2022 Bilateral CC and MLO views with tomosynthesis and synthetic mammography submitted. Computer aided det ection analyzed. Breast composition: The breasts are heterogeneously dense, which may obscure small masses. No suspici ous masses, microcalcifications or architectural distortion. Benign calcification posterior lateral R IGHT breast. MM/[place] [id number] IMPRESSION: BI-RADS: 2-Benign FOLLOW UP: 1 Year Follow-up
== END 2023-07-20 11:08 | disposition home or self-care (01) ==
LOC: RAD 11:07
PROVIDERS: PCP Family Medicine; Visit Provider Family Medicine
DX: Z12.31 Encounter for screening mammogram for malignant neoplasm of breast (principal); R92.333 Mammographic heterogeneous density, bilateral breasts
CPT/HCPCS: 77063; 77067

== ENCOUNTER → 2023-12-27 14:30 | Outpatient (BNVA) | payer MEDICARE, OTHER, SELFPAY | PROVIDERS: PCP Family Medicine; Visit Provider Internal Medicine Rheumatology | DX: L93.1 Subacute cutaneous lupus erythematosus (principal); Z79.899 Other long term (current) drug therapy; M05.79 Rheumatoid arthritis with rheumatoid factor of multiple sites without organ or systems involvement; Z71.89 Other specified counseling; L30.9 Dermatitis, unspecified; R76.8 Other specified abnormal immunological findings in serum; M17.0 Bilateral primary osteoarthritis of knee | CPT/HCPCS: 36415; 80076; 82565; 85025; 85651; 86140; 99214 ==

== ENCOUNTER → 2024-01-23 11:30 | Outpatient (BNVA) | payer MEDICARE, OTHER, SELFPAY | PROVIDERS: PCP Family Medicine; Visit Provider Specialist | DX: G50.0 Trigeminal neuralgia (principal); Z79.899 Other long term (current) drug therapy; G31.84 Mild cognitive impairment of uncertain or unknown etiology; R29.90 Unspecified symptoms and signs involving the nervous system | CPT/HCPCS: 96116; 99214 ==

== ENCOUNTER 2024-01-24 15:30 | Outpatient (CLI) | payer MEDICARE, OTHER, SELFPAY ==
[2024-01-24 17:45] LABS: Vitamin B12 871 pg/mL (232-1245)
== END 2024-01-24 15:31 | disposition home or self-care (01) ==
LOC: LAB 15:33
PROVIDERS: PCP Family Medicine; Visit Provider Specialist
DX: G31.84 Mild cognitive impairment of uncertain or unknown etiology (principal); G50.0 Trigeminal neuralgia
CPT/HCPCS: 36415; 82542; 82607; 83520

== ENCOUNTER → 2024-04-18 11:40 | Outpatient (BNVA) | payer MEDICARE, OTHER, SELFPAY | PROVIDERS: PCP Family Medicine; Visit Provider Specialist | DX: G50.0 Trigeminal neuralgia (principal); Z79.899 Other long term (current) drug therapy; R29.90 Unspecified symptoms and signs involving the nervous system; G31.84 Mild cognitive impairment of uncertain or unknown etiology | CPT/HCPCS: 99214 ==

== ENCOUNTER → 2024-07-10 13:07 | Outpatient (BNVA) | payer MEDICARE, OTHER, SELFPAY | PROVIDERS: PCP Family Medicine; Visit Provider Internal Medicine Rheumatology | DX: M05.79 Rheumatoid arthritis with rheumatoid factor of multiple sites without organ or systems involvement (principal); L30.9 Dermatitis, unspecified; Z79.899 Other long term (current) drug therapy; Z71.89 Other specified counseling; R76.8 Other specified abnormal immunological findings in serum | CPT/HCPCS: 36415; 80076; 82565; 85025; 85651; 86140; 99214 ==

== ENCOUNTER 2024-07-22 16:41 | Outpatient (CLI) | payer MEDICARE, OTHER, SELFPAY ==
--- NOTE | 2024-07-22 16:54 | XR_ITS ---
WS: [id number] XR lumbar spine 2-3V* [id number] REASON FOR EXAM: SPINAL STENOSIS OF LUMBAR REGION FINDINGS: Moderate levoscoliosis. Posterior decompression with pedicle screws, interconnecting rods, and interbody fusion device L4-L5. The surgical appliances are intact and in proper position and alignment. Mild disc space narrowing with endplate sclerosis and osteophytosis L2-L3 and L3-L4. XR/XR lumbar spine 2-3V* [id number] IMPRESSION: Postoperative lumbar spine as above.
== END 2024-07-22 16:42 | disposition home or self-care (01) ==
PROVIDERS: PCP Family Medicine; Visit Provider Nurse Practitioner Family
DX: Z98.1 Arthrodesis status (principal); M48.061 Spinal stenosis, lumbar region without neurogenic claudication; M41.86 Other forms of scoliosis, lumbar region; M25.78 Osteophyte, vertebrae; R93.7 Abnormal findings on diagnostic imaging of other parts of musculoskeletal system
CPT/HCPCS: 72100

== ENCOUNTER 2024-08-29 10:54 | Outpatient (CLI) | payer MEDICARE, OTHER, SELFPAY ==
--- NOTE | 2024-08-29 11:01 | MM_ITS ---
WS: [id number] BILATERAL 3D TOMOSYNTHESIS DIGITAL SCREENING MAMMOGRAM WITH CAD CLINICAL INFORMATION: SCREENING HISTORY: Screening mammogram. No current complaints. COMPARISON: 2023 TECHNIQUE: Bilateral CC and MLO. FINDINGS: The breast are composed of extremely dense tissue, which can limit the detection of small underlying mass lesions. No suspicious focal mass, asymmetry, calcifications, or architectural distortion. No evidence of malignancy. Lucent centered calcification RIGHT breast. Vascular calcification. MM/MM [facility] tomosynthesis [id number] IMPRESSION: DENSITY: The breasts are heterogeneously dense, which may obscure small masses. BI-RADS: 2 - Benign FOLLOW UP: 1 Year Follow-up Recommend return to annual screening mammography.
== END 2024-08-29 10:55 | disposition home or self-care (01) ==
PROVIDERS: PCP Nurse Practitioner Family; Visit Provider Nurse Practitioner Family
DX: Z12.31 Encounter for screening mammogram for malignant neoplasm of breast (principal); R92.1 Mammographic calcification found on diagnostic imaging of breast; R92.343 Mammographic extreme density, bilateral breasts
CPT/HCPCS: 77063; 77067

== ENCOUNTER 2024-10-05 21:01 | Emergency (ER) | payer MEDICARE, OTHER, SELFPAY ==
--- OUTSIDE RECORDS SUMMARY | 2024-08-19 11:00 | XMS_ITS ---
Author Organization [facility] Address [address] [place] [address] Care Team Providers Care Company Pilot Name Role Phone South FERRARA, Jd Primary Care Provider Griffin sarah EchevarriaChani Unavailable [phone] Merino, Jaylin Unavailable [phone] REASON FOR VISIT standard follow up apt Encounters Encounter Location Date Provider Diagnosis [facility] [address] [place] [id number] 08/19/2024 Jaylin Merino Plan Of Treatment Next Appt Details Provider Name:Chani Garcia son, 01/21/2025 10:00:00 AM, [address] [place], [address], Progress Notes * Sharon PARSONS JDOB:1950 ( 74 yo F)Acc No.[id number]:08/19/2024 Progress Notes Patient: Sophia BHAGATSharon Gonzales Provider: Janet Merino SPECIAL WEAPONS AND TACTICS OFFICER :1950 A ge:74 Y S ex:Female Date:08/19/2024 Address: [address] [place] [id number] Pcp:Jd Dia MD Subjective: * Chief Complaints: * S tandard follow up apt Billing Information: * Procedure Codes: Care Plan Details* * Electronic signature of Brooklyn Merino MH TEACHER on 10/05/2024 at 09:09 PM CDT Sign off status: Pending * Provider: Janet Merino SPECIAL WEAPONS AND TACTICS OFFICER Date: 0 08/19/2024 Generated for Brenna cai/Wilber/Nathenitting on: 0 10/05/2024 09:09 PM CDT
--- OUTSIDE RECORDS SUMMARY | 2024-10-05 21:08 | XMS_ITS | Encounter Summary ---
Author Organization [facility] Address [address] [place] [address] Care Team Providers Care Forest Nursery Supervisor Name Role Phone Jaylin Merino APN Primary Care Provider [phone] Encounter Details Date Type Department Care Team (Latest Contact Info) Description 06/05/2000 Outpatient Historical [facility] Delmar Henriquez NO ADDRESS ON FILE Hx-genital/obstetric disease (Primary Dx); Urinary sys symptom NEC Social History Tobacco Use Types Packs/Day Years Used Date Smoking Tobacco: Never Assessed Comments Unknown Sex and Gender Information Value Date Recorded Sex Assigned at Not on file 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 [address] PCP - General Nurse Practitioner Family 05/15/20 documented as of this encounter
--- OUTSIDE RECORDS SUMMARY | 2024-10-05 21:08 | XMS_ITS | Encounter Summary ---
Author Organization [facility] Address [address] [place] [address] Care Team Providers Care Upholstery Sewer Name Role Phone Jaylin Merino APN Primary Care Provider Encounter Details Date Type Department Care Team (Latest Contact Info) Description 09/25/2000 Outpatient Historical [facility] Delmar Henriquez NO ADDRESS ON FILE Vaginitis and vulvovaginitis, unspecified (Primary Dx) Social History Tobacco Use Types Packs/Day Years Used Date Smoking Tobacco: Never Assessed Comments Unknown Sex and Gender Information Value Date Recorded Sex Assigned at Not on file 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
--- OUTSIDE RECORDS SUMMARY | 2024-10-05 21:08 | XMS_ITS | Encounter Summary ---
Author Organization [facility] Address [address] [place] [address] Care Team Providers Care [employer] Home Economics Teacher Name Role Phone Jaylin Merino APN Primary Care Provider Encounter Details Date Type Department Care Team (Latest Contact Info) Description 05/22/2000 Outpatient Historical [facility] Delmar Henriquez NO ADDRESS ON FILE Candidiasis of vulva and vagina (Primary Dx); Vaginitis and vulvovaginitis, unspecified Social History Tobacco Use Types Packs/Day Years Used Date Smoking Tobacco: Never Assessed Comments Unknown Sex and Gender Information Value Date Recorded Sex Assigned at Not on file 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
--- OUTSIDE RECORDS SUMMARY | 2024-10-05 21:08 | XMS_ITS | Encounter Summary ---
Author Organization [facility] Address [address] [place] [address] Care Team Providers Care Supervisor Coal Handling Name Role Phone Jaylin Merino APN Primary Care Provider Encounter Details Date Type Department Care Team (Latest Contact Info) Description 06/08/2000 Outpatient Historical [facility] Jovan Presley Jr., MD [address] [place] [id number] Urinary frequency (Primary Dx) Social History Tobacco Use Types Packs/Day Years Used Date Smoking Tobacco: Never Assessed Comments Unknown Sex and Gender Information Value Date Recorded Sex Assigned at Not on file 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
--- OUTSIDE RECORDS SUMMARY | 2024-10-05 21:08 | XMS_ITS | Encounter Summary ---
Author Organization [facility] Address [address] [place] [address] Care Team Providers Care Assistant Grocery Store Manager Name Role Phone Jaylin Merino APN Primary Care Provider Encounter Details Date Type Department Care Team (Latest Contact Info) Description 08/18/2000 Outpatient Historical [facility] Delmar Henriquez NO ADDRESS ON FILE Vaginitis and vulvovaginitis, unspecified (Primary Dx) Social History Tobacco Use Types Packs/Day Years Used Date Smoking Tobacco: Never Assessed Comments Unknown Sex and Gender Information Value Date Recorded Sex Assigned at Not on file Legal Sex Female 6:47 AM SPECIAL NEEDS CAREGIVER Gender Identity Not on file Sexual Orientation Not on file documented as of this encounter Plan of Treatment Not on file documented as of this encounter Visit Diagnoses Diagnosis Vaginitis and vulvovaginitis, unspecified- Primary documented in this encounter Care Teams Assistant Grocery Store Manager Relationship Specialty Start Date End Date Jaylin Merino APN [facility] [address] [address] PCP - General Nurse Practitioner Family 05/15/20 documented as of this encounter
--- OUTSIDE RECORDS SUMMARY | 2024-10-05 21:08 | XMS_ITS ---
Author Organization Unknown Vital Signs BpStanding BpSitting BpSupine Date Temperature HeartRate Weight Hei ght Spo2 Respiration Bmi HeadCircumference FieldCount TimeRecorded NeckCircumferen ce WaistCircumference Pulse 134/66 12/20 00:00 :00 98.5 126,16. 00 5,7 98 16 19.9 00:00 68 118/70 11/16 00:00 :00 97.1 126,0.0 0 5,7 97 19.7 00:00 75 122/60 10/19 00:00 :00 98.5 123,16. 00 5,7 98 16 19.4 00:00 77 138/65 03/13 00:00 :00 97.3 125,0.0 0 5,7 96 19.6 00:00 76 112/68 05/15 00:00 :00 97.7 122,0.0 0 5,7 98 19.1 00:00 87
--- OUTSIDE RECORDS SUMMARY | 2024-10-05 21:09 | XMS_ITS | Encounter Summary ---
Author Organization [facility] Address [address] [place] [address] Care Team Providers Care Manager Dish Name Role Phone Jaylin Merino APN Primary Care Provider [phone] Encounter Details Date Type Department Care Team (Latest Contact Info) Description 09/04/1998 Outpatient Historical [facility] Rheumatology- [facility] [place] [address] [place] [id number] Lashell Rodrate MD [address] [place] [address] Syst lupus erythematosus (Primary Dx) Social History Tobacco Use Types Packs/Day Years Used Date Smoking Tobacco: Never Assessed Comments Unknown Sex and Gender Information Value Date Recorded Sex Assigned at Not on file 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 [address] PCP - General Nurse Practitioner Family 05/15/20 documented as of this encounter
--- OUTSIDE RECORDS SUMMARY | 2024-10-05 21:09 | XMS_ITS | Encounter Summary ---
Author Organization [facility] Address [address] [place] [address] Care Team Providers Care Mammalogy Teacher Name Role Phone Jaylin Mreino APN Primary Care Provider [phone] Encounter Details Date Type Department Care Team (Latest Contact Info) Description 03/01/2004 Outpatient Historical [facility] Rheumatology- [facility] [place] [address] [place] [address] Lashell Rodarte MD [address] [place] [address] Syst lupus erythematosus (Primary Dx); Adhesive capsulit shlder Social History Tobacco Use Types Packs/Day Years Used Date Smoking Tobacco: Never Assessed Comments Unknown Sex and Gender Information Value Date Recorded Sex Assigned at Not on file Legal Sex Female 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 [address] PCP - General Nurse Practitioner Family 05/15/20 documented as of this encounter
--- OUTSIDE RECORDS SUMMARY | 2024-10-05 21:09 | XMS_ITS | Encounter Summary ---
Author Organization [facility] Address [address] [place] [address] Care Team Providers Care Policy Writer Name Role Phone Jaylin Merino APN Primary Care Provider Encounter Details Date Type Department Care Team (Latest Contact Info) Description 03/16/2005 Outpatient Historical [facility] Rheumatology- [facility] [place] [address] [place] [address] Lashell Rodarte MD [address] [place] [address] Syst lupus erythematosus (Primary Dx); Adhesive capsulit shlder; RHEUMATISM NOS Social History Tobacco Use Types Packs/Day Years Used Date Smoking Tobacco: Never Assessed Comments Unknown Sex and Gender Information Value Date Recorded Sex Assigned at Not on file Legal Sex Female 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 [facility] [address] [place] [address] PCP - General Nurse Practitioner Family 05/15/20 documented as of this encounter
--- OUTSIDE RECORDS SUMMARY | 2024-10-05 21:09 | XMS_ITS | Encounter Summary ---
Author Organization [facility] Address [address] [place] [address] Care Team Providers Care Parking Enforcer Name Role Phone Jaylin Merino APN Primary Care Provider [phone] Encounter Details Date Type Department Care Team (Latest Contact Info) Description 01/19/2000 Outpatient Historical [facility] Delmar Henriquez NO ADDRESS ON FILE Chest pain, unspecified (Primary Dx); Vaginitis and vulvovaginitis, unspecified; Depressive disorder, not elsewhere classified; Need vaccination-viral disease Social History Tobacco Use Types Packs/Day Years Used Date Smoking Tobacco: Never Assessed Comments Unknown Sex and Gender Information Value Date Recorded Sex Assigned at Not on file 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 [address] PCP - General Nurse Practitioner Family 05/15/20 documented as of this encounter
--- OUTSIDE RECORDS SUMMARY | 2024-10-05 21:09 | XMS_ITS | Encounter Summary ---
Author Organization [facility] Address [address] [place] [address] Care Team Providers Care Filling Machine Operator Name Role Phone Jaylin Merino APN Primary Care Provider [phone] Encounter Details Date Type Department Care Team (Latest Contact Info) Description 09/01/1999 Outpatient Historical [facility] Jovan Presley Jr., MD [address] [place] [id number] Other malaise and fatigue (Primary Dx); Syst lupus erythematosus; Panic disorder without agoraphobia Social History Tobacco Use Types Packs/Day Years Used Date Smoking Tobacco: Never Assessed Comments Unknown Sex and Gender Information Value Date Recorded Sex Assigned at Not on file Legal Sex Female 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 [address] PCP - General Nurse Practitioner Family 05/15/20 documented as of this encounter
--- OUTSIDE RECORDS SUMMARY | 2024-10-05 21:09 | XMS_ITS | Encounter Summary ---
Author Organization [facility] Address [address] [place] [address] Care Team Providers Care Mononitrotoluene Operator Name Role Phone Jaylin Merino APN Primary Care Provider [phone] Encounter Details Date Type Department Care Team (Latest Contact Info) Description 11/20/2000 Outpatient Historical [facility] Rheumatology- [facility] [place] [address] [place] [address] Lashell Rodarte MD [address] [place] [address] Syst lupus erythematosus (Primary Dx) Social History Tobacco Use Types Packs/Day Years Used Date Smoking Tobacco: Never Assessed Comments Unknown Sex and Gender Information Value Date Recorded Sex Assigned at Not on file 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 [address] PCP - General Nurse Practitioner Family 05/15/20 documented as of this encounter
--- OUTSIDE RECORDS SUMMARY | 2024-10-05 21:09 | XMS_ITS | Encounter Summary ---
Author Organization [facility] Address [address] [place] [address] Care Team Providers Care Behavioral Health Consultant Name Role Phone Jaylin Merino APN Primary Care Provider [phone] Encounter Details Date Type Department Care Team (Latest Contact Info) Description 08/08/2003 Outpatient Historical [facility] Rheumatology- [facility] [place] [address] [place] [address] Lashell Rodarte MD [address] [place] [address] Syst lupus erythematosus (Primary Dx) Social History Tobacco Use Types Packs/Day Years Used Date Smoking Tobacco: Never Assessed Comments Unknown Sex and Gender Information Value Date Recorded Sex Assigned at Not on file Legal 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 [address] PCP - General Nurse Practitioner Family 05/15/20 documented as of this encounter
--- OUTSIDE RECORDS SUMMARY | 2024-10-05 21:09 | XMS_ITS | Encounter Summary ---
Author Organization [facility] Address [address] [place] [address] Care Team Providers Care Pipe Or Steam Fitter Furnace Installer Name Role Phone Jaylin Merino APN Primary Care Provider Encounter Details Date Type Department Care Team (Late st Contact Info) Description 02/08/2007 Outpatient Historical [facility] Endocrinology-[facility] [address] [place] [address] Sudhir Elena MD NO ADDRESS ON FILE Social History Tobacco Use Types Packs/Day Years Used Date Smoking Tobacco: Never Assessed Comments Unknown Sex and Gender Information Value Date Recorded Sex Assigned at Not on file Legal Sex Female 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
--- OUTSIDE RECORDS SUMMARY | 2024-10-05 21:09 | XMS_ITS | Encounter Summary ---
Author Organization [facility] Address [address] [place] [address] Care Team Providers Care Furniture Salesperson Name Role Phone Jaylin Merino APN Primary Care Provider [phone] Encounter Details Date Type Department Care Team (Latest Contact Info) Description 02/18/2000 Outpatient Historical [facility] Delmar Henriquez NO ADDRESS ON FILE Depressive disorder, not elsewhere classified (Primary Dx) Social History Tobacco Use Types Packs/Day Years Used Date Smoking Tobacco: Never Assessed Comments Unknown Sex and Gender Information Value Date Recorded Sex Assigned at Not on file Legal Sex Female 6: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 [address] PCP - General Nurse Practitioner Family 05/15/20 documented as of this encounter
--- OUTSIDE RECORDS SUMMARY | 2024-10-05 21:09 | XMS_ITS | Clinical Summary ---
Author Organization [facility] Address [address] [place] [address] Care Team Providers Care Carving Machine Operator Name Role Phone Wilber, Jaylin Mcintyre APN Primary Care Provider [phone] Allergies Active Allergy Reactions Criticality Noted Date Comments Pneumococcal Vaccine Unknown 05/15/2007 Sulfa (Sulfonamide Antibiotics) Rash Low 04/21 Medications leflunomide (ARAVA) 10 mg tablet Take 10 mg by mouth daily. 12/19/2019 Active montelukast (SINGULAIR) 10 mg tablet Take 10 mg by mouth daily. 01/05/2020 Active predniSONE (DELTASONE) 2.5 mg tablet Take 2.5 mg by mouth daily. 12/16/2019 Active famotidine (PEPCID) 40 mg tablet Take 40 mg by mouth daily. 12/20/2019 Active hydrocortisone (HYTONE) 2.5 % Ointment APPLY TO AFFECTED AREA TWICE A DAY 11/11/2019 Active conjugated estrogens (Premarin) 0.625 mg tablet Take 0.625 mg by mouth daily. 12/23/2019 Active Active Problems Problem Noted Date Diagnosed Date Unspecified hypothyroidism 02/08/2007 Immunizations Immunization Administration Dates Next Due (PNEUMOVAX 23)(50 YRS UP) PN EUMOCOCCAL POLYSACCHARIDE (PPV23) 0.5 ML, IM 04/12/2006,01/31/2003 Influenza Seasonal Unspecified Formulation IM ,01/19/2000 Social History Tobacco Use Types Packs/Day Years Used Date Smoking Tobacco: Former Cigarettes Q uit: 01/28/2005 Comments Unknown Sex and Gender Information Value Date Recorded Sex Assigned at Not on file Legal Sex Female 1:47 PM BIAS CUTTER Gender Identity Not on file Sexual Orientation Not on file Last Filed Vital Signs Vital Sign Reading Time Taken Comments Blood Pressure 125/75 01/29/2020 3:37 PM BIAS CUTTER Pulse 76 01/29/2020 3:37 PM BIAS CUTTER Temperature - - Respiratory Rate - - Oxygen Saturation - - Inhaled Oxygen Concentration - - Weight 56.7 kg (125 lb) 01/29/2020 3:37 PM BIAS CUTTER Height 170.2 cm (5' 7 ) 01/29/2020 3:37 PM BIAS CUTTER Body Mass Index 19.58 01/29/2020 3:37 PM BIAS CUTTER Plan of Treatment Health Maintenance Due Date Last Done Comments DTAP/TDAP/TD VACCINES (1 - Tdap) 1968 COLORECTAL SCREENING 1994 Colorectal Cancer Screening 1994 FIT-DNA Q 3 years 1994 FIT/FOBT Q 1 year 1994 Flex Sig/CT Colonography Q 5 years 1994 ZOSTER VACCINE (1 of 2) 08/15/1999 PNEUMOCOCCAL VACCINE 50+ YEA RS (2 of 2 - PCV) 04/12/2007 04/12/2006, 01/31/2003 OSTEOPOROSIS SCREENING 2014 RSV VACCINE (60+ or ) (1 - 1-dose 75+ series) 2024 INFLUENZA VACCINE (#1) 2024 11/26/2009, 1999 Care Teams Carving Machine Operator Relationship Specialty Start Date End Date Wilber, Jaylin Mcintyre APN [facility] [address] [address] PCP - General 05/15/20
--- OUTSIDE RECORDS SUMMARY | 2024-10-05 21:09 | XMS_ITS | Encounter Summary ---
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
--- OUTSIDE RECORDS SUMMARY | 2024-10-05 21:09 | XMS_ITS | Encounter Summary ---
Author Organization [facility] Address [address] [place] [address] Care Team Providers Care Medical Assistant Name Role Phone Jaylin Merino APN Primary Care Provider [phone] Encounter Details Date Type Department Care Team (Latest Contact Info) Description 11/28/[address] [facility] Rheumatology- [facility] 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 [address] PCP - General Nurse Practitioner Family 05/15/20 documented as of this encounter
--- OUTSIDE RECORDS SUMMARY | 2024-10-05 21:09 | XMS_ITS | Encounter Summary ---
Author Organization [facility] Address [address] [place] [address] Care Team Providers Care Maintenance Of Way Superintendent Name Role Phone Jaylin Merino APN Primary Care Provider [phone] Encounter Details Date Type Department Care Team (Latest Contact Info) Description 09/24/1999 Outpatient Historical [facility] Rheumatology- [facility] [address] [place] [address] Lashell Rodarte MD [address] [place] [address] Syst lupus erythematosus (Primary Dx) Social History Tobacco Use Types Packs/Day Years Used Date Smoking Tobacco: Never Assessed Comments Unknown Sex and Gender Information Value Date Recorded Sex Assigned at Not on file Legal Sex Female 6:47 AM MATERIALS MGMT TECH Gender Identity Not on file Sexual Orientation Not on file documented as of this encounter Plan of Treatment Not on file documented as of this encounter Visit Diagnoses Diagnosis Syst lupus erythematosus- Primary Systemic lupus erythematosus documented in this encounter Care Teams Maintenance Of Way Superintendent Relationship Specialty Start Date End Date Jaylin Merino APN [address] [address] PCP - General Nurse Practitioner Family 05/15/20 documented as of this encounter
--- OUTSIDE RECORDS SUMMARY | 2024-10-05 21:09 | XMS_ITS | Encounter Summary ---
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 [facility] [address] [place] [address] PCP - General Nurse Practitioner Family 05/15/20 documented as of this encounter
--- OUTSIDE RECORDS SUMMARY | 2024-10-05 21:09 | XMS_ITS | Encounter Summary ---
Author Organization [facility] Address [address] [place] [address] Care Team Providers Care Tool And Die Technician Name Role Phone Jaylin Merino APN Primary Care Provider [phone] Encounter Details Date Type Department Care Team (Latest Contact Info) Description 05/25/2001 Outpatient Historical [facility] Rheumatology- [facility] [address] [place] [address] Lashell Rodarte MD [address] [place] [address] Syst lupus erythematosus (Primary Dx) Social History Tobacco Use Types Packs/Day Years Used Date Smoking Tobacco: Never Assessed Comments Unknown Sex and Gender Information Value Date Recorded Sex Assigned at Not on file Legal Sex Female 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 [address] PCP - General Nurse Practitioner Family 05/15/20 documented as of this encounter
--- OUTSIDE RECORDS SUMMARY | 2024-10-05 21:09 | XMS_ITS | Encounter Summary ---
Author Organization [facility] Address [address] [place] [address] Care Team Providers Care Office Lead Name Role Phone Jaylin Merino APN Primary Care Provider Encounter Details Date Type Department Care Team (Latest Contact Info) Description 01/31/2003 Outpatient Historical [facility] Rheumatology- [facility] [place] [address] [place] [address] Lashell Rodarte MD [address] [place], [place] [address] Syst lupus erythematosus (Primary Dx); VACCINE FOR STREP PNEUMONIAE Social History Tobacco Use Types Packs/Day Years Used Date Smoking Tobacco: Never Assessed Comments Unknown Sex and Gender Information Value Date Recorded Sex Assigned at Not on file Legal Sex Female 6:47 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 [facility] [address] [place] [address] PCP - General Nurse Practitioner Family 05/15/20 documented as of this encounter
--- OUTSIDE RECORDS SUMMARY | 2024-10-05 21:09 | XMS_ITS | Encounter Summary ---
Author Organization [facility] Address [address] [place] [address] Care Team Providers Care Ms Access Database Developer Name Role Phone Jaylin Merino APN Primary Care Provider Encounter Details Date Type Department Care Team (Latest Contact Info) Description 04/12/2006 Outpatient Historical [facility] Rheumatology- [facility] [place] [address] [place] [address] Lashell Rodarte MD [address] [place], [place] [address] Syst Lupus Erythematosus (Primary Dx); Vaccin Strep Pneumoniae Social History Tobacco Use Types Packs/Day Years Used Date Smoking Tobacco: Never Assessed Comments Unknown Sex and Gender Information Value Date Recorded Sex Assigned at Not on file Legal Sex Female 6:47 AM MARBLE AND GRANITE POLISHER Gender Identity Not on file Sexual Orientation Not on file documented as of this encounter Plan of Treatment Not on file documented as of this encounter Visit Diagnoses Diagnosis Syst lupus erythematosus- Primary Systemic lupus erythematosus Need for prophylactic vaccination against Streptococcus pneumoniae (pneumococcus) Need for prophylactic vaccination against streptococcus pneumoniae (pneumococcus) documented in this encounter Care Teams Ms Access Database Developer Relationship Specialty Start Date End Date Jaylin Merino APN [address] [facility] [address] [place] [address] PCP - General Nurse Practitioner Family 05/15/20 documented as of this encounter
--- OUTSIDE RECORDS SUMMARY | 2024-10-05 21:09 | XMS_ITS | Clinical Summary ---
Author Organization [facility] Address [address] [place] [address] Care Team Providers Care Binding Nicker Name Role Phone Jaylin Merino APN Primary Care Provider Allergies Active Allergy Reactions Criticality Noted Date Comments Pneumococcal Vaccine Unknown 05/15/2007 Sulfa (Sulfonamide Antibiotics) Rash Low 04/21 Medications XANAX 0.5 mg Oral Tab . Active BIOTIN PO 5000 mcg Takes one daily Active famotidine (PEPCID) 40 mg tablet Take 40 mg by mouth daily. 12/20/2019 Active hydrocortisone (HYTONE) 2.5 % Ointment APPLY TO AFFECTED AREA TWICE A DAY 11/11/2019 Active leflunomide (ARAVA) 10 mg tablet Take 10 mg by mouth daily. 12/19/2019 Active montelukast (SINGULAIR) 10 mg tablet Take 10 mg by mouth daily. 01/05/2020 Active predniSONE (DELTASONE) 2.5 mg tablet Take 2.5 mg by mouth daily. 12/16/2019 Active Premarin 0.625 mg tablet Take 0.625 mg by mouth daily. 12/23/2019 Active Active Problems Problem Noted Date Diagnosed Date Unspecified hypothyroidism 02/08/2007 Immunizations Immunization Administration Dates Next Due (PNEUMOVAX 23)(50 YRS UP) PN EUMOCOCCAL POLYSACCHARIDE (PPV23) 0.5 ML, IM 04/12/2006,01/31/2003 Influenza Seasonal Unspecified Formulation IM ,01/19/2000 Social History Tobacco Use Types Packs/Day Years Used Date Smoking Tobacco: Former Cigarettes Q uit: 01/28/2005 Comments No Sex and Gender Information Value Date Recorded Sex Assigned at Not on file Legal Sex Female 6:47 AM CUSTOMER ASSOCIATE Gender Identity Not on file Sexual Orientation Not on file Last Filed Vital Signs Vital Sign Reading Time Taken Comments Blood Pressure 125/75 01/29/2020 3:37 PM CUSTOMER ASSOCIATE Pulse 76 01/29/2020 3:37 PM CUSTOMER ASSOCIATE Temperature - - Respiratory Rate - - Oxygen Saturation 98% 01/29/2020 3:37 PM CUSTOMER ASSOCIATE Inhaled Oxygen Concentration - - Weight 56.7 kg (125 lb) 01/29/2020 3:37 PM CUSTOMER ASSOCIATE Height 170.2 cm (5' 7 ) 01/29/2020 3:37 PM CUSTOMER ASSOCIATE Body Mass Index 19.58 01/29/2020 3:37 PM CUSTOMER ASSOCIATE Plan of Treatment Health Maintenance Due Date Last Done Comments DTAP/TDAP/TD VACCINES (1 - Tdap) 1968 COLORECTAL SCREENING 1994 FIT-DNA Q 3 years 1994 Flex Sig/CT Colonography Q 5 years 1994 ZOSTER VACCINE (1 of 2) 08/15/1999 Colorectal Cancer Screening 03/01/2002 FIT/FOBT Q 1 year 03/01/2002 03/01/2001 PNEUMOCOCCAL VACCINE 50+ YEA RS (2 of 2 - PCV) 04/12/2007 04/12/2006, 01/31/2003 OSTEOPOROSIS SCREENING 2014 RSV VACCINE (60+ or ) (1 - 1-dose 75+ series) 2024 INFLUENZA VACCINE (#1) 2024 11/26/2009, 1999 Insurance MEDICARE PART A AND B [facility] Care Teams Binding Nicker Relationship Specialty Start Date End Date Jaylin Merino APN [address] [place] [id number] PCP - General Nurse Practitioner Family 05/15/20
--- OUTSIDE RECORDS SUMMARY | 2024-10-05 21:09 | XMS_ITS | Encounter Summary ---
Author Organization [facility] Address [address] [place] [address] Care Team Providers Care Importer Exporter Name Role Phone Jaylin Merino APN Primary Care Provider [phone] Encounter Details Date Type Department Care Team (Latest Contact Info) Description 06/28/2002 Outpatient Historical [facility] [place] [facility]- [facility] [place] [address] [place] [id number] Lashell Rodarte MD [address] [place], [place] [address] RHEUMATISM NOS (Primary Dx); Syst lupus erythematosus; AFTERCARE USP USE MEDICATN Social History Tobacco Use Types Packs/Day Years Used Date Smoking Tobacco: Never Assessed Comments Unknown Sex and Gender Information Value Date Recorded Sex Assigned at Not on file 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 [facility] [address] [place] [address] PCP - General Nurse Practitioner Family 05/15/20 documented as of this encounter
--- OUTSIDE RECORDS SUMMARY | 2024-10-05 21:09 | XMS_ITS | Encounter Summary ---
Author Organization [facility] Address [address] [place] [address] Care Team Providers Care Lime Burner Name Role Phone Jaylin Merino APN Primary Care Provider [phone] Encounter Details Date Type Department Care Team (Late st Contact Info) Description 11/20/2000 Outpatient Historical [facility] Lashell Rodarte MD [address] [place], [place] [id number] Encounter for long-term (current) use of other medications (Primary Dx); Syst lupus erythematosus Social History Tobacco Use Types Packs/Day Years Used Date Smoking Tobacco: Never Assessed Comments Unknown Sex and Gender Information Value Date Recorded Sex Assigned at Not on file 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 [address] [place] [address] PCP - General Nurse Practitioner Family 05/15/20 documented as of this encounter
--- OUTSIDE RECORDS SUMMARY | 2024-10-05 21:09 | XMS_ITS | Patient Health Record ---
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 Name Role Phone Jd Dia MD Primary Care Provider UnavailChani Kingston Unavailable [phone] Fred Montoya Unavailable [phone] Erickson Locke Unavailable [phone] Jaylin Merino Unavailable [phone] Ward Jesus Unavailable [phone] Allergies Allergen (clinical drug ingredient) Drug/Non Drug Allergy documented on EMR Reaction Allergy Type Onset Date Status Vaccine product containing Streptococcus pneumoniae antigen (medicinal product) Pneumococcal Vaccines swelling Drug Allergy Active Substance with sulfonamide structure and antibacterial mechanism of action (substance) Sulfa Antibiotics rash Drug Allergy Active Results Component Value Reference Range Flag Notes Schedule Confirmation Reviewed date:04/11/2024 03:02:05 PM Interpretation: Performing Lab: Notes/Report: MRI Lumbar Spine w/o Cont BB ABORH-50056,69198 (Not ye t reviewed by provider) Interpretation: Performing Lab: Notes/Report: BB ABORh Interp O POS Unknown Mammogram Screening Digital Breast Tomosynthesis, bilateral - 64476 Reviewed date:08/30/2024 08:10:48 AM Interpretation:Negative Performing Lab: Notes/Report: Negative zzzFluoro >1h4 (Not yet revi ewed by provider) Interpretation: Performing Lab: Notes/Report: Fluoroscopy only. No dictation for this exam and accession number. FINAL REPORT Read Fluoroscopy only. No dictation for this exam and accession number. IH Lumbosacral Spine AP/Lat - [id number] (Not yet reviewed by provider) Interpretation: Performing Lab: Notes/Report: See Below For Report Lumbosacral Spine AP/Lat IH Lumbosacral Spine AP/Lat - 25399 (Not yet reviewed by provider) Interpretation: Performing Lab: Notes/Report: lpa=[id number]&org=iSite Chest PA/Lat-07564 (Not yet reviewed by provider) Interpretation: Performing Lab: Notes/Report: See Below For Report Chest PA/Lat Diagnosis Description: Spondylolisthesis, lumbar region Read See Below For Report MRI Lumbar Spine w/o Cont-72 148 Reviewed date:05/08/2024 12:42:18 PM Interpretation: Performing Lab: Notes/Report: See Below For Report MRI Lumbar Spine w/o Cont Diagnosis Description: Spinal stenosis, lumbar region with neurogenic claudication Read See Below For Report Schedule Confirmation Reviewed date:04/11/2024 04:48:36 PM Interpretation: Performing Lab: Notes/Report: MRI Lumbar Spine w/o Cont Schedule Confirmation Reviewed date:04/08/2024 10:42:14 AM Interpretation: Performing Lab: Notes/Report: MRI Lumbar Spine w/o Cont Schedule Confirmation Reviewed date:04/04/2024 08:03:28 AM Interpretation: Performing Lab: Notes/Report: MRI Lumbar Spine w/o Cont Schedule Confirmation Reviewed date:04/04/2024 08:03:35 AM Interpretation: Performing Lab: Notes/Report: MRI Lumbar Spine w/o Cont Hip 2-3 View Uni Left w/ Pel vis-25693 Reviewed date:03/29/2024 10:07:59 AM Interpretation: Performing Lab: Notes/Report: The report for this exam was dictated at [facility] . FINAL REPORT Read The report for this exam was dictated at [facility] . MRI Lumbar Spine w/o Cont-72 148 Reviewed date:04/11/2024 04:48:56 PM Interpretation: Performing Lab: Notes/Report: [email or web address]=[id number]&org=iSite Hip 2-3 View Uni Left w/ Pel vis-14684 Reviewed date:03/29/2024 10:08:22 AM Interpretation: Performing Lab: Notes/Report: ehv=[id number]&org=iSite Basic Metabolic Panel (BMP) 40855 (Not yet reviewed by provider) Interpretation: Performing Lab: Notes/Report: Diagnosis Description: Spondylolisthesis, lumbar region Diagnosis Description: Radiculopathy, lumbar region Diagnosis Description: Vertebrogenic low back pain Diagnosis Description: Other intervertebral disc degeneration, lumbar region with discogenic back pain and lower extremity pain Diagnosis Description: Hemorrhagic condition, unspecified Diagnosis Description: Encounter for other preprocedural examination Sodium 133 136-145 MMOL/L LOW Potassium 4.2 3.5-5.1 MMOL/L Chloride 98 98-107 MMOL/L CO2 28.0 20.0-31.0 MMOL/L Glucose Serum 80 71-110 MG/DL Testing p erformed at [facility], [address] [place] [address] Dr. Kirit Ricci, BLUE [address]. CLIA ID#: [id number] BUN 19 7-21 MG/DL Creat .70 .51-1.17 MG/DL Z-gnzemc-d-benzoquin one imine (NAPQI) is a metabolite of acetaminophen, NAPQI concentrations of apparoximately 10 mg/L correlation to toxic levels of acetaminophen demonstrates a greater than or equil to 10% change in results. NAPQI concentrations greater than this may lead to falsely depressed results for patient samples. Use of this assay is not recommended for patients undergoing treatment with phenindione, due to the potential for falsely depressed results. GFR 90.5 NA Calculation pe rformed from GFR calculator provided by the [employer]. Glomerular Filtration rate(GRF) is the best overall index of kidney function. Normal GFR varies according to age,sex, body size, and declines with age. The [employer] recommends using the CKD-EPI Creatinine Equation(202) to estimate GFR. Anion Gap 11 5-15 BUN/Creat Ratio 27.1 12.0-20.0 % HI Calcium 10.2 8.7-10.4 MG/DL Osmo Serum,Calculated 277 280-300 MOSM/KG LOW Prothrombin Time 63079 (Not yet reviewed by provider) Interpretation: Performing Lab: Notes/Report: Diagnosis Description: Spondylolisthesis, lumbar region Diagnosis Description: Radiculopathy, lumbar region Diagnosis Description: Vertebrogenic low back pain Diagnosis Description: Other intervertebral disc degeneration, lumbar region with discogenic back pain and lower extremity pain Diagnosis Description: Hemorrhagic condition, unspecified Diagnosis Description: Encounter for other preprocedural examination ProTime 9.9 9.1-11.9 SEC Normal Range : 9.1-11.9 INR <.93 .90-1.20 Therapaeutic Range for heart valve replacement: 2.5-3.50 Therapeutic Range: 2.0-3.0 Partial Thromboplastin Time 40489 (Not yet reviewed by provider) Interpretation: Performing Lab: Notes/Report: Diagnosis Description: Spondylolisthesis, lumbar region Diagnosis Description: Radiculopathy, lumbar region Diagnosis Description: Vertebrogenic low back pain Diagnosis Description: Other intervertebral disc degeneration, lumbar region with discogenic back pain and lower extremity pain Diagnosis Description: Hemorrhagic condition, unspecified Diagnosis Description: Encounter for other preprocedural examination PTT 25.8 22.6-31.8 SEC Critical Value Starting at > 100. Therapeutic Range: 60-100. Antibody Screen 28244 (Not y et reviewed by provider) Interpretation: Performing Lab: Notes/Report: Diagnosis Description: Spondylolisthesis, lumbar region Diagnosis Description: Radiculopathy, lumbar region Diagnosis Description: Vertebrogenic low back pain Diagnosis Description: Other intervertebral disc degeneration, lumbar region with discogenic back pain and lower extremity pain Diagnosis Description: Hemorrhagic condition, unspecified Diagnosis Description: Encounter for other preprocedural examination Blood Bank ID [id number] Unknown ABSC Interp Negative CBC w\ Auto Diff 92295 (Not yet reviewed by provider) Interpretation: Performing Lab: Notes/Report: Diagnosis Description: Spondylolisthesis, lumbar region Diagnosis Description: Radiculopathy, lumbar region Diagnosis Description: Vertebrogenic low back pain Diagnosis Description: Other intervertebral disc degeneration, lumbar region with discogenic back pain and lower extremity pain Diagnosis Description: Hemorrhagic condition, unspecified Diagnosis Description: Encounter for other preprocedural examination WBC 5.2 4.5-11.0 X10'3 RBC 4.60 4.00-5.20 X10'6 Hgb 12.2 12.0-16.0 G/DL Hct 38.9 36.0-46.0 % MCV 84.6 80.0-100.0 FL MCH 26.5 27.0-31.0 PG LOW MCHC 31.4 31.0-37.0 G/DL Platelet 268 150-400 X10'3 RDW-SD 41.9 35.0-49.0 FL RDW-CV 13.4 12.2-15.6 % MPV 11.1 9.2-12.0 FL Neutro Auto% 64.1 40.0-70.0 % Lymph Auto% 21.8 22.0-44.0 % LOW Winston Auto% 12.7 3.0-7.0 % HI Eos Auto% .4 2.0-4.0 % LOW Baso Auto% 0.6 0.0-1.0 % Imm Gran% .4 .0-.4 % Neutro Abs 3.33 .80-7.70 Absolute Neutrophil Count 3330 NA Lymph Abs 1.13 .10-4.10 Winston Abs .66 .20-1.00 Eos Abs .02 .00-.40 Baso Abs .03 .00-.20 Imm Gran Abs .02 .00-.10 NRBC# .00 .00-.20 X10'3 NRBC% .00 .00-.20 /100 intact WBC's ABORh 14103, 13668 (Not yet reviewed by provider) Interpretation: Performing Lab: Notes/Report: Diagnosis Description: Spondylolisthesis, lumbar region Diagnosis Description: Radiculopathy, lumbar region Diagnosis Description: Vertebrogenic low back pain Diagnosis Description: Other intervertebral disc degeneration, lumbar region with discogenic back pain and lower extremity pain Diagnosis Description: Hemorrhagic condition, unspecified Diagnosis Description: Encounter for other preprocedural examination ABO/Rh Interp O POS Unknown Chest PA/Lat-53616 (Not yet reviewed by provider) Interpretation: Performing Lab: Notes/Report: [id number]&org=iSite XR Outside CD Reviewed date:08/29/2024 12:27:02 PM Interpretation: Performing Lab: Notes/Report: [id number]=iSite Reason For Referral Reason Evaluate and treat Diagnosis 1 Lumbar stenosis with neurogenic claudication (M48.062) Referring Provider First Name Ward Referring Provider Last Name Edin Referring Provider Speciality Orthopedic Surgery Referred Organization [facility] [place] Referred Provider Fred Montoya Referred Address [address],[place],[address], Referral Priority Routine Reason Evaluate and treat Diagnosis 1 Lumbar stenosis with neurogenic claudication (M48.062) Referral Organization [facility] Referring Provider First Name Ward Referring Provider Last Name Edin Referring Provider Speciality Orthopedic Surgery Referred Provider FRED MONTOYA Referred Provider Specialty Neurological Surgery Clinical Notes Maureen Kim 025 03:47:41 PM >seen 04/16/24 Referral Priority Routine Reason physical therapy in at [facility]. eval and treat. Diagnosis 1 Spondylolisthesis at L4-L5 level (M43.16) Referral Organization [facility] [place] Referring Provider First Name Chani Referring Provider Last Name Wale Referring Provider Speciality Neurosurge ry Referral Priority Routine Medications Medication SIG (Take, Route, Frequency, Duration) Notes Start Date End Date Status Tacrolimus 0.1 % Ointment APPLY TO AFFEC MOLLY AREAS ON FACE TWICE DAILY NEEDED External; Duration: 30 Not-Taking ALPRAZolam 1 MG Tablet TAKE 1/2 - 1 TABL ET BY MOUTH THREE TIMES A DAY NEEDED FOR ANXIETY; Duration: 30 08/09/2024 Active Vitamin D (Ergocalciferol) 1.25 MG (15793 UT) Capsule 1 capsule Orally weekly; Duration: 90 days Active Aspirin 81 81 MG Tablet Chewable 1 tablet Orally Once a day Active Xeljanz 10 MG Tablet 1 tablet Orally Twi ce a day Active Premarin 0.625 mg Tablet TAKE ONE TABLET BY MOUTH ONCE DAILY; Duration: 90 days Active carBAMazepine 100 MG Tablet Chewable TAKE 1/2 TABLET BY MOUTH 3 TIMES DAILY NEEDED FOR 30 DAYS; Duration: 30 Unknown Ibuprofen 800 mg Tablet TAKE ONE TABLET BY MOUTH THREE TIMES DAILY AFTER MEALS NEEDED FOR inflammatory pain; Duration: 90 Active Betamethasone Dipropionate 0.05 % Ointment APPLY TO AFFECTED AREA TWICE DAILY FOR NO MORE THAN 2 WEEKS PER MONTH. NOT FOR FACE OR SKIN FOLDS External; Duration: 30 Not-Taking Finasteride 1 MG Tablet TAKE 1 TABLET BY MOUTH EVERY DAY FOR 30 DAYS Oral; Duration: 90 Days Active Fluconazole 150 mg Tablet TAKE ONE TABLE T BY MOUTH EVERY DAY FOR THREE DAYS; Duration: 3 Not-Taki ng carBAMazepine ER 200 MG Tablet Extended Release 12 Hour TAKE 1 TABLET BY MOUTH TWICE DAILY Oral; Duration: 30 Days Active Famotidine 40 MG Tablet TAKE 1 TABLET BY MOUTH EVERY DAY; Duration: 90 Active Montelukast Sodium 10 MG Tablet TAKE 1 TABLET BY MOUTH EVERY DAY; Duration: 90 Active predniSONE 5 MG Tablet 1 tablet Oral Onc e a day; Duration: 90 days Active LORazepam 2 MG Tablet 1 tablet at bedtime as needed Orally Once a day; Duration: 1 days Take 1 hour before MRI scan 03/26/2024 Active Triamcinolone Acetonide 0.1 % Ointment APPLY TO AFFECTED AREA TWICE DAILY FOR NO MORE THAN 2 WEEKS PER MONTH. NOT FOR FACE External; Duration: 30 Not-Taking Leflunomide 10 MG Tablet TAKE 1 TABLET B Y MOUTH EVERY DAY Oral; Duration: 30 Days Active Leflunomide 10 MG Tablet TAKE 1 TABLET B Y MOUTH EVERY DAY FOR INFLAMMATORY ARTHRITIS Oral; Duration: 90 Not-Taking Immunizations Vaccine Route Administration Date Status Comme nts Flucelvax Quadrivalent IM Intramuscular 12/13/2022 Administered [facility] [id number] pt tolerated well/instructed to wait 20 min Social History Tobacco Use: Social History Observation Description Date Details (start date - stop date) Never Smoker NA - NA Social History Depression Screening Social Info Question Answer Notes depression screening findings Findings Negative (0 -4) PHQ-9 Little interest or p sylwia in doing things Not at all Feeling down, depressed, or hopeless Not at all Trouble falling or staying asleep, or sleeping t oo much Not at all Feeling tired or having little energy Not at all Poor appetite or overeating Not at all Feeling bad about yourself, or that you are a failure, or have let yourself or your family down Not at all Trouble concentrating on thi ngs, such as reading the newspaper or watching television Not at all Moving or speaking so slowly that other people could have noticed. Or the opposite ? being so fidgety or restless that you have been moving around a lot more than usual Not at all Thoughts that you would be b berenice off , or of hurting yourself in some way Not at all Total Score 0 Drugs/Alcohol: Social Info Question Answer Notes Alcohol Screen (Audit-C) Did you have a drink containing alcohol in the past year? Yes How often did you have a drink containing alcohol in the past year? 2 to 3 times a week (3 points) Points 3 Interpretation Positive Drugs Have you used drugs other than those for medical reasons in the past 12 months? No Comprehensive Health Assessm ent Social Info Question Answer Notes *Social Determinants of Health Has lack of transportation kept you from medical appointments, meetings, work or from getting things needed for daily living? No Recently, have you worried t hat your food would run out before you got money to buy more? No Do you feel physically and emotionally safe wher e you currently live? Yes Are you worried about losing your housing? No Drug/Alcohol: Social Info Question Answer Notes AUDIT-C (Standard) Did you have a drink containing alcohol in the past year? Yes How often did you have six or more drinks on one occasion in the past year? 2 to 3 times per week (3 points) How many drinks did you have on a typical day when you were drinking in the past year? 1 or 2 drinks (0 point) How often did you have a drink containing alcohol in the past year? 2 to 4 times a month (2 points) Points 5 Interpretation Positive Tobacco Use: Social Info Question Answer Notes Tobacco Control (Standard) Tobacco use: Nonsmoker Section Notes: Depression screen completed 02/01/2024 score 0 Currently drinks alcohol 2-4 times a month, past nicotine user (stoppped age 54), currently taking steroids Depression screen completed 04/14/22 score 1 Depression screen completed 04/14/22 score 1 Depression screen completed 04/14/22 score 1 Depression screen completed 04/14/22 score 1 Depression screen completed 04/14/22 score 1 Depression screen completed 04/14/22 score 1 Depression screen completed 04/14/22 score 1 Depression screen completed 04/14/22 score 1 Depression screen completed 04/14/22 score 1 Depression screen completed 04/14/22 score 1 Depression screen completed 04/14/22 score 1 Depression screen completed 04/14/22 score 1 Depression screen completed 04/14/22 score 1 Depression screen completed 04/14/22 score 1 Depression screen completed 02/01/2024 score 0 Currently drinks alcohol 2-4 times a month, past nicotine user (stoppped age 54), currently taking steroids Depression screen completed 02/01/2024 score 0 Currently drinks alcohol 2-4 times a month, past nicotine user (stoppped age 54), currently taking steroids Depression screen completed 02/01/2024 score 0 Currently drinks alcohol 2-4 times a month, past nicotine user (stoppped age 54), currently taking steroids Depression screen completed 02/01/2024 score 0 Currently drinks alcohol 2-4 times a month, past nicotine user (stoppped age 54), currently taking steroids Depression screen completed 02/01/2024 score 0 Depression screen completed 08/31/2023 score 0 Depression screen completed 08/31/2023 score 0 Depression screen completed 04/14/22 score 1 Depression screen completed 04/14/22 score 1 Depression screen completed 04/14/22 score 1 Depression screen completed 04/14/22 score 1 Depression screen completed 04/14/22 score 1 Depression screen completed 04/14/22 score 1 Problems Problem Type SNOMED Code ICD Code Onset Dates Problem Status W/U Status Risk Notes Problem 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) Active confirmed Problem Irritable bowel syndrome with diarrhea (143728607) Irritable bowel syndrome with diarrhea (K58.0) Active confirmed Problem Menopause (683360170) Menopausal and female climacteric states (N95.1) Active confirmed Problem Spinal stenosis of lumbar region (88646536) Spinal stenosis, lumbar region without neurogenic claudication (M48.061) Active confirmed Problem Gastroesophageal reflux disease without esophagitis (349310706) Gastroesophageal reflux disease without esophagitis (K21.9) Active confirmed Problem Anxiety (64652248) Anxiety (F41.9) Active confi rmed Problem Lumbar radiculopathy (430384378) Lumbar radiculopathy (M54.16) Active confirmed Problem Spinal stenosis of lumbar region (89679974) Spinal stenosis of lumbar region, unspecified whether neurogenic claudication present (M48.061) Active confirmed Problem Hyperlipidaemia (22055188) Hyperlipidemia, unspecified hyperlipidemia type (E78.5) Active confirmed Problem Lupus (889793996) Lupus (M32.9) Active confirme d Problem Joint pain (18934138) Arthralgia, unspecified joint (M25.50) Active confirmed Problem Depression screening (239866288) Depression screen (Z13.31) Active confirmed Problem Long-term current use of drug therapy (248420434) Long-term use of high-risk medication (Z79.899) Active confirmed Problem Thyroid disorder screening (357970544) Thyroid disorder screening (Z13.29) Active confirmed Problem Diabetes mellitus screening (617902544) Diabetes mellitus screening (Z13.1) Active confirmed Problem Rheumatoid arthritis (68932681) Rheumatoid arthritis involving multiple sites with positive rheumatoid factor (M05.79) Active confirmed Problem Sciatica (79749405) Sciatica (M54.30) Active co nfirmed Problem Acquired spondylolisthesis (188893396) Spondylolisthesis at L4-L5 level (M43.16) Active confirmed Problem Wasp sting (disorder) (227832958) Wasp sting, accidental or unintentional, initial encounter (T63.461A) Active confirmed Problem Environmental allergy (887154079) Environmental allergies (Z91.09) Active confirmed Problem Neurogenic claudication (197983597) Lumbar stenosis with neurogenic claudication (M48.062) Active confirmed Problem Bleeding disorder (97722812) Bleeding disorder (D69.9) Active confirmed Problem Acquired spondylolisthesis (192542696) Anterolisthesis of lumbar spine (M43.16) Active confirmed Vital Signs Heart Rate 91 /min 07/23/2024 Temperature 97.6 degrees Fahrenheit 07/23/2024 Respiratory Rate 20 /min 07/23/2024 Height-cm 170.18 cm 07/23/2024 Oximetry 98 % 07/23/2024 Blood pressure diastolic 64 mm Hg 07/23/2024 Weight-kg 56.7 kg 07/23/2024 Height 67 in 07/23/2024 Blood pressure systolic 118 mm Hg 07/23/2024 Weight 125 lbs 07/23/2024 BMI 19.58 kg/m2 07/23/2024 Encounters Encounter Location Date Provider Diagnosis [facility] [address] [address] 02/01/2024 [facility] Encounter for Medica re annual wellness exam Z00.00 ; Menopausal and female climacteric states N95.1 ; Muscle spasm M62.838 ; Sciatica M54.30 ; Anxiety F41.9 ; Diarrhea, unspecified type R19.7 and Lupus M32.9 [facility] [address] [place] [address] 03/26/2024 Ward Jesus Myelopathy in diseas es classified elsewhere G99.2 and Spinal stenosis, lumbar region with neurogenic claudication M48.062 [facility] [address] [place] [address] 04/12/2024 Ward Jesus Lumbar stenosis with neurogenic claudication M48.062 [facility] [place] [address] [place] [address] 04/16/2024 Fred Miguel Spondylolisthesis at L4-L5 level M43.16 ; Lumbar radiculopathy M54.16 ; Vertebrogenic low back pain M54.51 and Degeneration of intervertebral disc of lumbar region with discogenic back pain and lower extremity pain M51.362 [facility] [address] [place] [address] 05/21/2024 Chani Echevarria Spinal stenosis of lumbar region, unspecified whether neurogenic claudication present M48.061 and Arthrodesis status Z98.1 [facility] [place] [address] [place] [address] 07/23/2024 Chani Echevarria Spondylolisthesis at L4-L5 level M43.16 ; Lumbar radiculopathy M54.16 and Arthrodesis status Z98.1 [facility] [address] [address] [facility] [place] [address] [place] [address] 04/17/2024 Fredbraxton Montoya Spondylolisthesis at L4-L5 level M43.16 ; Lumbar radiculopathy M54.16 ; Vertebrogenic low back pain M54.51 ; Degeneration of intervertebral disc of lumbar region with discogenic back pain and lower extremity pain M51.362 ; Bleeding disorder D69.9 and Encounter for other preprocedural examination Z01.818 [facility] [place] [address] [place] [address] 05/03/2024 Fred Montoya [facility] [place] [address] [place] [address] 05/30/2024 Erickson Locke [facility] [place] [address] [place] [address] 06/03/2024 Erickson Locke [facility] [address] [place] [address] 06/28/2024 [facility] [address] [address] 08/30/2024 [facility] Screening mammogram, encounter for Z12.31 Assessments Encounter Date Diagnosis (ICD Code) Assessment Notes Treatment Notes Treatment Clinical Notes Section Notes 04/17/2024 Spondylolisthesis at L4-L5 level (ICD-10 - M43.16) 04/17/2024 Lumbar radiculopathy (ICD-10 - M54.16) 05/21/2024 Spinal stenosis of lumbar region, unspecified whether neurogenic claudication present (ICD-10 - M48.061) 05/21/2024 Arthrodesis status (ICD-10 - Z98.1) 07/23/2024 Spondylolisthesis at L4-L5 level (ICD-10 - M43.16) recommended physical therapy. will refer to PT at [facility]. xrays reviewed of lumbar spine. Stable hardware/surgica l changes. 07/23/2024 Lumbar radiculopathy (ICD-10 - M54.16) 03/26/2024 Myelopathy in diseases classified elsewhere (ICD-10 - G99.2) 03/26/2024 Spinal stenosis, lumbar region with neurogenic claudication (ICD-10 - M48.062) This individual I think definitely has a neurogenic spinal stenosis. Her hips look fine. We will proceed with an MRI scan of the lumbar spine. 04/12/2024 Lumbar stenosis with neurogenic claudication (ICD-10 - M48.062) 04/16/2024 Spondylolisthesis at L4-L5 level (ICD-10 - M43.16) 04/16/2024 Lumbar radiculopathy (ICD-10 - M54.16) 02/01/2024 Encounter for Medicare annual wellness exam (ICD-10 - Z00.00) Please schedule your next AWV in 1 year. see eval Please schedule your next AWV in 1 year. 02/01/2024 Menopausal and femal e climacteric states (ICD-10 - N95.1) premarin 08/30/2024 Screening mammogram, encounter for (ICD-10 - Z12.31) 02/01/2024 Muscle spasm (ICD-10 - M62.838) parafon 04/16/2024 Vertebrogenic low back pain (ICD-10 - M54.51) 07/23/2024 Arthrodesis status (ICD-10 - Z98.1) 04/17/2024 Vertebrogenic low back pain (ICD-10 - M54.51) 04/17/2024 Degeneration of intervertebral disc of lumbar region with discogenic back pain and lower extremity pain (ICD-10 - M51.362) 04/16/2024 Degeneration of intervertebral disc of lumbar region with discogenic back pain and lower extremity pain (ICD-10 - M51.362) 02/01/2024 Sciatica (ICD-10 - M54.30) depomedrol/decad jackelyn im 02/01/2024 Anxiety (ICD-10 - F41.9) xanax 04/17/2024 Bleeding disorder (ICD-10 - D69.9) 04/17/2024 Encounter for other preprocedural examination (ICD-10 - Z01.818) 02/01/2024 Diarrhea, unspecifie d type (ICD-10 - R19.7) lomotil 02/01/2024 Lupus (ICD-10 - M32.9) 02/01/2024 Other Questions asked and answered; discharged to home. 04/16/2024 Other The patient's symptoms and clinical findings were reviewed. The patient is having increased low back pain with left hip and left lower extremity pain. The patient says her quality of life has decreased, and she is unable to function with daily activities. The MRI of the lumbar spine was reviewed and discussed with the patient. 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 There are also Modic changes at the same level. We discussed treatment options of physical therapy and/or lumbar injections. The patient says her pain is too severe for therapy. I suspect lumbar injections are unlikely to be of benefit for sustained improvement. Surgical intervention was discussed and is warranted. The patient was offered an L4-5 TLIF. The surgery procedure was described to the patient. The risks of surgery and the recovery expectations were discussed. Questions were asked and answered to the patient's satisfaction. She states her understanding and wishes to proceed with the surgery offered. ROS reviewed I Jonna Evans LPN am scribing for, and in the presence of Fred Montoya MD. I, Fred Montoya, personally performed the services described in this documentation, as scribed by Jonna Evans LPN in my presence, and it is both accurate and complete. 05/21/2024 Other Patient to continue current restrictions x 1 month then may increase activity. f/u 2 months with xray. Plan Of Treatment Pending Test Test Name Order Date Prothrombin Time 45704 04/17/2024 ABORh 75468, 82554 04/17/2024 Antibody Screen [id number] 04/17/2024 Basic Metabolic Panel (BMP) 09624 2024 CBC w\ Auto Diff 82642 04/17/2024 Partial Thromboplastin Time 32454 2024 Chest PA/Lat-89557 04/17/2024 Chest PA/Lat-60066 04/30/2024 Lumbosacral Spine AP/Lat-54975 Lumbosacral Spine AP/Lat-85417 Electrocardiogram 12 Lead Tracing-59277 04/17/2024 BB ABORH-87441,64793 04/30/2024 zzzFluoro >1h4 05/06/2024 IH Lumbosacral Spine AP/Lat - 93872 04/20 IH Lumbosacral Spine AP/Lat - 45642 04/20 Next Appt Details Provider Name:Chani Garcia son, 01/21/2025 10:00:00 AM, [address] [place], [address], Insurance Providers Payer Name Payer Address Payer Phone Subscriber Number Group Number Insured Name Patient Relationship to Insured Coverage Start Date Coverage End Date [place] [address] [place] [phone] [id number] Sharon PARSONS Self - patient is the insured 2 [employer] [address] [address] [place] [phone] [id number] Sharon PARSONS Self - patient is the insured 2 [place] [address] [address] [place] [address] [id number] ISSASharon Self - patient is the insured Medications Administered Medication Instructions Date of Administration Dosage Notes DEPO-Medrol 08/31/2023 40 mg ndc 64468-056 3-01 pt tolerated well/instructed to wait 20 min DEPO-Medrol 02/01/2024 40 mg ndc 32556-054 3-01 pt tolerated well/instructed to wait 20 min dexAMETHasone 05/26/2022 4 mg ndc 90756-9 423-00 pt tolerated well/instructed to wait 20 min DEPO-Medrol 05/26/2022 40 mg ndc 14602-291 3-01 pt tolerated well/instructed to wait 20 min DEPO-Medrol 09/05/2023 [place] [address]-047 3-01 pt tolerated well/instructed to wait 20 min dexAMETHasone 02/01/2024 [place] [address]-7 165-02 pt tolerated well/instructed to wait 20 min dexAMETHasone 09/05/2023 4 mg ndc 81784-7 423-00 pt tolerated well/instructed to wait 20 min dexAMETHasone 08/31/2023 4 mg ndc 05524-9 423-00 pt tolerated well/instructed to wait 20 min Medical (General) History Medical History History ICD Code lupus menopause GERD anemia Chicken Pox measles mumps chronic bladder infections Low Blood Pressure eczema irritable bowel syndrome hives Arthritis UTI Tick Fever Surgical History Surgery Date(Month/Year) hysterectomy, total with bilateral salpi sanchez-oophorectomy (BSO) 1962 appendectomy 1963 cholecystectomy Hospitalization History Reason Date(Month/Year) see surgical history
--- OUTSIDE RECORDS SUMMARY | 2024-10-05 21:09 | XMS_ITS | Encounter Summary ---
Author Organization [facility] Address [address] [place] [address] Care Team Providers Care General Milling Superintendent Name Role Phone Jaylin Merino APN Primary Care Provider [phone] Encounter Details Date Type Department Care Team (Latest Contact Info) Description 09/10/2004 Outpatient Historical [facility] Rheumatology- [facility] [place] [address] [place] [address] Lashell Rodarte MD [address] [place], [place] [address] Syst lupus erythematosus (Primary Dx); RHEUMATISM NOS Social History Tobacco Use Types Packs/Day Years Used Date Smoking Tobacco: Never Assessed Comments Unknown Sex and Gender Information Value Date Recorded Sex Assigned at Not on file 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 [address] PCP - General Nurse Practitioner Family 05/15/20 documented as of this encounter
--- OUTSIDE RECORDS SUMMARY | 2024-10-05 21:09 | XMS_ITS | Encounter Summary ---
Author Organization [facility] Address [address] [place] [address] Care Team Providers Care Fruit Dumper Name Role Phone Jaylin Merino APN Primary Care Provider [phone] Encounter Details Date Type Department Care Team (Latest Contact Info) Description 10/12/2005 Outpatient Historical [facility] Rheumatology- [facility] [place] [address] [place] [address] Lashell Rodarte MD [address] [place] [address] Syst Lupus Erythematosus (Primary Dx) Social History Tobacco Use Types Packs/Day Years Used Date Smoking Tobacco: Never Assessed Comments Unknown Sex and Gender Information Value Date Recorded Sex Assigned at Not on file 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 [address] PCP - General Nurse Practitioner Family 05/15/20 documented as of this encounter
--- OUTSIDE RECORDS SUMMARY | 2024-10-05 21:09 | XMS_ITS | Encounter Summary ---
Author Organization [facility] Address [address] [place] [address] Care Team Providers Care Union Organiser Name Role Phone Jaylin Merino APN Primary Care Provider Encounter Details Date Type Department Care Team (Latest Contact Info) Description 01/03/2000 Outpatient Historical [facility] Delmar Henriquez NO ADDRESS ON FILE Disorder of bone and cartilage, unspecified (Primary Dx); Fam hx-muscloskl dis NEC; Bereavement, uncomplicated Social History Tobacco Use Types Packs/Day Years Used Date Smoking Tobacco: Never Assessed Comments Unknown Sex and Gender Information Value Date Recorded Sex Assigned at Not on file 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 [facility] [address] [place] [address] PCP - General Nurse Practitioner Family 05/15/20 documented as of this encounter
--- OUTSIDE RECORDS SUMMARY | 2024-10-05 21:09 | XMS_ITS | Encounter Summary ---
Author Organization [facility] Address [address] [place] [address] Care Team Providers Care Press Operator Instant Print Shop Name Role Phone Jaylin Merino APN Primary Care Provider Encounter Details Date Type Department Care Team (Late st Contact Info) Description 03/01/2001 Outpatient Historical [facility] [place] [address] [place] [address] Tammy Mcginnis MD [address] [facility] 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 Gender Identity Not on file Sexual Orientation Not on file documented as of this encounter Plan of Treatment Not on file documented as of this encounter Visit Diagnoses Diagnosis Vaginitis and vulvovaginitis, unspecified- Primary Screening for malignant neoplasm of the cervix Screening for malignant neoplasm of the rectum documented in this encounter Care Teams Press Operator Instant Print Shop Relationship Specialty Start Date End Date Jaylin Merino APN [facility] [address] [place] [address] PCP - General Nurse Practitioner Family 05/15/20 documented as of this encounter
--- OUTSIDE RECORDS SUMMARY | 2024-10-05 21:09 | XMS_ITS | Encounter Summary ---
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
--- OUTSIDE RECORDS SUMMARY | 2024-10-05 21:09 | XMS_ITS | Encounter Summary ---
Author Organization [facility] Address [address] [place] [address] Care Team Providers Care Offset Pressman Name Role Phone Jaylin Merino APN Primary Care Provider [phone] Encounter Details Date Type Department Care Team (Latest Contact Info) Description 04/10/2000 Outpatient Historical [facility] Rheumatology- [facility] [place] [address] [place] [address] Lashell Rodarte MD [address] [place], [place] [address] Rheumatism, unspecified and fibrositis (Primary Dx); Syst lupus erythematosus Social History Tobacco Use Types Packs/Day Years Used Date Smoking Tobacco: Never Assessed Comments Unknown Sex and Gender Information Value Date Recorded Sex Assigned at Not on file 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 [address] PCP - General Nurse Practitioner Family 05/15/20 documented as of this encounter
--- OUTSIDE RECORDS SUMMARY | 2024-10-05 21:09 | XMS_ITS | Encounter Summary ---
Author Organization [facility] Address [address] [place] [address] Care Team Providers Care Is Technician Name Role Phone Jaylin Merino APN Primary Care Provider [phone] Encounter Details Date Type Department Care Team (Latest Contact Info) Description 03/06/1998 Outpatient Historical [facility] Rheumatology- [facility] [place] [address] [place] [address] Lashell Rodarte MD [address] [place] [address] Syst lupus erythematosus (Primary Dx) Social History Tobacco Use Types Packs/Day Years Used Date Smoking Tobacco: Never Assessed Comments Unknown Sex and Gender Information Value Date Recorded Sex Assigned at Not on file 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 [address] PCP - General Nurse Practitioner Family 05/15/20 documented as of this encounter
--- OUTSIDE RECORDS SUMMARY | 2024-10-05 21:09 | XMS_ITS | Encounter Summary ---
Author Organization [facility] Address [address] [place] [address] Care Team Providers Care Seismic Interpreter Name Role Phone Jaylin Merino APN Primary Care Provider [phone] Encounter Details Date Type Department Care Team (Latest Contact Info) Description 10/11/2006 Outpatient Historical [facility] Rheumatology- [facility] [place] [address] [place] [address] Lashell Rodarte MD [address] [place], [place] [address] Syst Lupus Erythematosus (Primary Dx); Rheumatism, Unspecified and Fibrositis Social History Tobacco Use Types Packs/Day Years Used Date Smoking Tobacco: Never Assessed Comments Unknown Sex and Gender Information Value Date Recorded Sex Assigned at Not on file 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 [address] PCP - General Nurse Practitioner Family 05/15/20 documented as of this encounter
[2024-10-05 21:36] VITALS: BP 163/76; PULSE 73; RESP 17; TEMP 36.6; O2SAT 98
--- NOTE | 2024-10-05 21:47 | CTR_ITS ---
PROCEDURE INFORMATION: Exam: CT Maxillofacial Without Contrast Exam date and time: 10/06/2024 12:19 AM Age: 74 years old Clinical indication: Injury or trauma; Fall; Blunt trauma (contusions or hematomas); Patient tripped over garden hose and fell face first onto ground. Contusion and deformity to nose. TECHNIQUE: Imaging protocol: Computed tomography of the face without contrast. Radiation optimization: All CT scans at this facility use at least one of these dose optimization techniques: automated exposure control; mA and/or kV adjustment per patient size (includes targeted exams where dose is matched to clinical indication); or iterative reconstruction. COMPARISON: CT head wo con* [id number] 10/06/2024 12:17 AM RADIATION DOSE METRICS: Total DLP (mGy-cm): 597.36 FINDINGS: Paranasal sinuses: See Nasal cavity finding. Orbital cavities: Bilateral lens replacements. Nasal cavity: Likely small hematoma within the anterior nasal cavity. Minimal mucosal thickening in the left maxillary and right sphenoid sinuses. No air-fluid levels. Bones: Acute comminuted fracture of the right nasal bone with apex lateral angulation. Acute minimally displaced left nasal bone fracture. Soft tissues: Mild soft tissue contusion along the nose. CT/CT facial bones wo con* [id number] IMPRESSION: Acute comminuted right nasal bone fracture. Acute nondisplaced left nasal bone fracture.
--- NOTE | 2024-10-05 21:47 | CTR_ITS ---
PROCEDURE INFORMATION: Exam: CT Head Without Contrast Exam date and time: 10/06/2024 12:17 AM Age: 74 years old Clinical indication: Injury or trauma; Fall; Blunt trauma (contusions or hematomas); Patient tripped over garden hose and fell face first onto ground. Contusion and deformity to nose. TECHNIQUE: Imaging protocol: Computed tomography of the head without contrast. Radiation optimization: All CT scans at this facility use at least one of these dose optimization techniques: automated exposure control; mA and/or kV adjustment per patient size (includes targeted exams where dose is matched to clinical indication); or iterative reconstruction. COMPARISON: MR head wo con* [id number] 10/20/2022 11:33 AM RADIATION DOSE METRICS: Total DLP (mGy-cm): 981.73 FINDINGS: Brain: Moderate generalized cortical volume loss. No hemorrhage. Periventricular and subcortical white matter hypodensities likely represent chronic small vessel ischemic changes. No mass effect. Cerebral ventricles: No ventriculomegaly. Paranasal sinuses: Visualized sinuses are unremarkable. No fluid levels. Mastoid air cells: Visualized mastoid air cells are well aerated. Bones: Acute nasal bone fractures, better assessed on accompanying CT maxillofacial, reported separately. The calvarium is intact. Soft tissues: Unremarkable. CT/CT head wo con* [id number] IMPRESSION: 1. No acute intracranial findings. 2. Nasal bone fractures. Please see accompanying CT maxillofacial report.
--- NOTE | 2024-10-06 01:27 | W.ED.FALL ---
HPI - Fall General: Chief Complaint: Fall Stated Complaint: fall Time Seen by Provider: 10/06/24 00:07 History of Present Illness: This 74-year-old female patient presents following a mechanical fall where she tripped over a hose. During the fall, she initially injured her knee, which she describes as minor, but subsequently struck her head and face hard. The patient reports initial concern about her back given her history of back surgery, however she denies significant back pain at this time, describing only tightness. She experienced some nasal bleeding following the trauma, though not profuse. Her nose is currently somewhat congested. She denies loss of consciousness or vomiting following the incident. The patient took 800mg of ibuprofen around 6 PM for pain management. She reports some soreness in her chest area. Her vision appears intact and she denies significant neck pain, though notes some general soreness. Denies loss of consciousness Denies vomiting Reports nasal congestion Related Data Home Medications ?Medication ?Instructions ?Recorded ?Confirmed montelukast 10 mg tablet 10 mg PO DAILY 04/11/19 07/10/24 (Singulair) famotidine 40 mg tablet (Pepcid) 40 mg PO DAILY 10/01/19 07/10/24 multivitamin with minerals 1 tab PO DAILY 10/01/19 07/10/24 (Hair,Skin and Nails tablet) conjugated estrogens 0.625 mg ea PO 11/16/21 07/10/24 tablet (Premarin) alprazolam 1 mg tablet 1 mg PO TID 12/28/22 07/10/24 Previous Rx's ?Medication ?Instructions ?Recorded cholecalciferol (vitamin D3) 50 50 mcg PO DAILY #90 caps 03/08/23 mcg (2,000 unit) capsule prednisone 20 mg tablet See Rx Instructions .Route 03/18/24 .COMPLEX #30 tabs carbamazepine 100 mg chewable 100 mg PO DAILY #30 tabs 06/11/24 tablet carbamazepine 200 mg See Rx Instructions .Route 07/03/24 tablet,extended release,12 hr .COMPLEX #180 tabs leflunomide 20 mg tablet 20 mg PO DAILY #90 tabs 07/10/24 tofacitinib 5 mg tablet (Xeljanz) 5 mg PO BID #60 tabs 07/10/24 prednisone 5 mg tablet 5 mg PO DAILY #90 tabs 07/18/24 Allergies Allergy/AdvReac Type Severity Reaction Status Date / Time doxycycline Allergy GERD Verified 04/18/24 11:42 lamotrigine Allergy ALGY-Rash Verified 04/18/24 11:42 PFSH ED PFSH: Medical History SS-A antibody positive Urinary tract infection Eczema SLE (systemic lupus erythematosus) Skin rash Subacute cutaneous lupus erythematosus Gout flare Immunization counseling High risk medication use Rheumatoid factor positive Inflammatory arthritis Osteoarthritis of feet, bilateral Vitamin D deficiency Immunosuppression Seropositive rheumatoid arthritis of multiple joints Systemic lupus erythematosus (SLE) in adult Surgical History No pertinent past surgical history Family History Other Cancer Denies family history of Rheumatoid arthritis Lupus Social History Smoking and tobacco/nicotine status: former use of tobacco/nicotine Alcohol intake: current Alcohol intake frequency: holidays/special occasions only Substance/Drug Use: never Physical Exam Const: COMMON NORMALS: alert ORIENTATION/CONSCIOUSNESS: Yes oriented to person, Yes oriented to place and Yes oriented to time HENMT: COMMON NORMALS: normocephalic HEAD & SCALP: normocephalic FACE & SINUS: sinus tenderness, ecchymosis and edema NOSE: Abnormal nasal septum present deviated (with swelling present); no septal hematoma; no Epistaxis present Eye: COMMON NORMALS: Equal, round and reactive pupils present, EOMs intact bilaterally and conjunctivae normal PERIORBITAL: periorbital findings abnormal positive bilateral periorbital swelling and periorbital ecchymosis CONJUNCTIVA: Yes conjunctivae normal PUPIL: Yes Equal, round and reactive pupils present Resp: COMMON NORMALS: normal respiratory effort, No use of accessory muscles and clear to auscultation bilaterally AUSCULTATION: clear to auscultation bilaterally Cardio: COMMON NORMALS: regular rate and regular rhythm RATE: regular rate RHYTHM: regular rhythm Neuro: ANYI COMA SCALE: document GCS findings [place] coma scale eye opening: Spontaneous [place] coma scale verbal response: Orientated [place] coma scale motor response: Obey commands Anyi coma scale total score: 15 SENSORIUM/ORIENTATION: Yes alert, Yes oriented to person, Yes oriented to place and Yes oriented to time CRANIAL NERVES: Yes CN normal except as noted SENSORY EXAM: Yes extremities Psych: COMMON NORMALS: mental status grossly normal Skin: COMMON NORMALS: no rashes or lesions noted GENERAL SKIN EXAM: no rashes or lesions noted Course Vital Signs: Vital signs: Vital Signs Temperature 97.8 F 10/05/24 21:36 Pulse Rate 73 10/05/24 21:36 Respiratory Rate 17 10/06/24 01:37 Blood Pressure 163/76 10/05/24 21:36 Pulse Oximetry 98 10/06/24 01:37 Oxygen Delivery Me thod Room Air 10/05/24 21:36 MDM - Fall Medical Decision Making Patient has normal mental status. Head CT is negative. Face CT shows comminuted right nasal bone fracture and nondisplaced left nasal bone fracture present. No septal hematoma. She will be allowed discharge. ENT surgery follow-up. Referral number given to the patient. Pain control, ice, return for problems. Lab Data Radiology Impressions Face CT 10/05/24 21:47 IMPRESSION: Acute comminuted right nasal bone fracture. Acute nondisplaced left nasal bone fracture. Head CT 10/05/24 21:47 IMPRESSION: 1. No acute intracranial findings. 2. Nasal bone fractures. Please see accompanying CT maxillofacial report. All radiology interpretation(s) finalized by discharge Discharge Plan Discharge Patient Disposition: Home Clinical Impression: Nasal bones, closed fracture Condition: Stable Prescriptions: No Action multivitamin with minerals [Hair,Skin and Nails] Tablet 1 tab PO DAILY famotidine [Pepcid] 40 mg tablet 40 mg PO DAILY montelukast [Singulair] 10 mg tablet 10 mg PO DAILY alprazolam 1 mg tablet 1 mg PO TID Premarin 0.625 mg tablet PO leflunomide 20 mg tablet 20 mg PO DAILY Qty: 90 1RF Xeljanz 5 mg tablet 5 mg PO BID Qty: 60 5RF cholecalciferol (vitamin D3) 50 mcg (2,000 unit) capsule 50 mcg PO DAILY Qty: 90 1RF prednisone 20 mg tablet See Rx Instructions .ROUTE .COMPLEX Qty: 30 2RF Dose Instruction: TAKE 1 TABLET BY MOUTH DAILY FOR 3-7 DAYS NEEDED FOR ARTHRITIS FLARE Rx Instructions: TAKE 1 TABLET BY MOUTH DAILY FOR 3-7 DAYS NEEDED FOR ARTHRITIS FLARE carbamazepine 100 mg tablet,chewable 100 mg PO DAILY Qty: 30 5RF carbamazepine 200 mg tablet extended release 12 hr See Rx Instructions .ROUTE .COMPLEX Qty: 180 3RF Dose Instruction: TAKE 1 TABLET BY MOUTH TWICE DAILY Rx Instructions: TAKE 1 TABLET BY MOUTH TWICE DAILY prednisone 5 mg tablet 5 mg PO DAILY Qty: 90 1RF Discharge Orders: Discharge ED (Routine); Ordered 10/06/24 Ordered By: Toribio Camara Referrals: Preet Mac MD [Physician, Ear, Nose, Throat] - 4-7 days Merino,TAB Mosqueda [Primary Care Provider, Nurse Practitioner] Patient Instructions: Nasal Fracture (ED), Opioid Safety, Pain Management, Patient Portal & [facility] Instructions Activity Restrictions/Additional Instructions: Call ENT office Monday morning for follow-up appointment this coming week. Ice can help with pain and swelling. Tylenol or ibuprofen can help with pain as well. Return for any concerning symptoms. Print Language: Serbian Coding Level of Care Code ED [employer] Research Scientist for Sia Hardin
[2024-10-06 01:37] VITALS: RESP 17; O2SAT 98
[2024-10-06] MEDS: oxyCODONE-APAP 5-325 mg Tablet 2 TAB PO (01:37)
== END 2024-10-06 01:41 | disposition home or self-care (01) ==
PROVIDERS: Emergency Provider Emergency Medicine; PCP Nurse Practitioner Family
DX: S02.2XXA Fracture of nasal bones, initial encounter for closed fracture (principal); Z87.891 Personal history of nicotine dependence; W18.09XA Striking against other object with subsequent fall, initial encounter
CPT/HCPCS: 70450; 70486; 99284; J9999

== ENCOUNTER → 2024-12-17 13:21 | Outpatient (BNVA) | payer MEDICARE, OTHER, SELFPAY | PROVIDERS: PCP Nurse Practitioner Family; Visit Provider Specialist | DX: G50.0 Trigeminal neuralgia (principal); G31.84 Mild cognitive impairment of uncertain or unknown etiology; Z79.899 Other long term (current) drug therapy | CPT/HCPCS: 99213 ==

== ENCOUNTER 2025-01-01 12:40 | Outpatient (RCR) | payer MEDICARE, OTHER, SELFPAY | END 2025-01-19 23:59 | disposition home or self-care (01) | LOC: SPT 12:40 | PROVIDERS: PCP Nurse Practitioner Family; Visit Provider Specialist | DX: M54.50 Low back pain, unspecified (principal) | CPT/HCPCS: 97110; 97161 ==

== ENCOUNTER 2025-01-06 16:26 | Outpatient (CLI) | payer MEDICARE, OTHER, SELFPAY ==
--- NOTE | 2025-01-06 16:31 | XR_ITS ---
WS: [id number] XR lumbar spine 2-3V* [id number] REASON FOR EXAM: LUMBAR RADICULOPATHY FINDINGS: Moderate rotatory levoscoliosis. Posterior decompression with pedicle screws, interconnecting rods, and interbody fusion device at L4-L5. Surgical appliances are intact and in proper position and alignment unchanged compared to the previous examination of 07/22/2024. The remainder of the lumbar spine is unchanged compared to the previous examination. XR/XR lumbar spine 2-3V* [id number] IMPRESSION: Stable postoperative lumbar spine.
[2025-01-06 17:05] LABS: Hematocrit 36.9 % (36-47); Hemoglobin 11.80 g/dL (11.27-16.99); Mean Corpuscular HGB Conc 32.0 g/dL (30-55); Mean Corpuscular Hemoglobin 26.6 pg (27-33); Mean Corpuscular Volume 83.1 fl (85-98); Nucleated Red Blood Cells % 0 %; Platelet Count 226 10^3/cmm (157-399); Red Blood Count 4.44 10^6/uL (3.85-5.65); White Blood Count 4.45 10^3/uL (3.29-11.43)
[2025-01-06 17:34] LABS: Alanine Aminotransferase 9 U/L (0-33); Albumin Level 4.2 g/dL (3.5-5.2); Alkaline Phosphatase 72 U/L (35-105); Aspartate Amino Transferase 16 U/L (0-32); Globulin 3.4 g/dL (1.3-4.6); Total Protein 7.6 g/dL (6.6-8.7)
[2025-01-06 21:47] LABS: Hepatitis B Surface Antigen Non-Reactive (Nonreactive)
== END 2025-01-06 16:27 | disposition home or self-care (01) ==
LOC: RAD 16:27
PROVIDERS: Internal Medicine Rheumatology; PCP Nurse Practitioner Family; Visit Provider Nurse Practitioner Family
DX: L93.1 Subacute cutaneous lupus erythematosus (principal); Z79.899 Other long term (current) drug therapy; M05.79 Rheumatoid arthritis with rheumatoid factor of multiple sites without organ or systems involvement; Z71.89 Other specified counseling; M54.16 Radiculopathy, lumbar region; M41.86 Other forms of scoliosis, lumbar region; M43.26 Fusion of spine, lumbar region; Z98.1 Arthrodesis status
CPT/HCPCS: 36415; 72100; 80076; 82565; 85025; 85651; 86140; 86480; 86704; 86803; 87340

== ENCOUNTER 2025-01-20 05:00 | Outpatient (RCR) | payer MEDICARE, OTHER, SELFPAY | END 2025-02-18 09:08 | disposition home or self-care (01) | LOC: SPT 05:00 | PROVIDERS: PCP Nurse Practitioner Family; Visit Provider Specialist | DX: M54.50 Low back pain, unspecified (principal) | CPT/HCPCS: 97110; 97530 ==